=== PATIENT | female | born 1950 | race Caucasian/White ===

== ENCOUNTER → 2018-04-22 12:41 | Outpatient (CLI) | payer MEDICARE, SELFPAY ==
[2018-04-15 13:00] VITALS: BMI 30.4
--- NOTE | 2018-04-22 12:46 | BI_ITS ---
MAMMOGRAPHY - BILATERAL SCREENING REASON FOR EXAM: Female, 68 years old. Routine annual screening examination. PERTINENT HISTORY: Non-contributory. TECHNIQUE: Digital bilateral breast oswaldo (3D mammographic acquisition) in the CC and MLO projections. 2-D mediolateral oblique (MLO) and craniocaudad (CC) views of both breasts were obtained. CAD: Full Field Digital Mammography with Computer Added Detection was performed. COMPARISON: Comparison is made with prior study dated March 10, 2017 and March 01, 2016. FINDINGS: Breast Composition: The breasts are almost entirely fatty. There are no dominant masses or suspicious calcifications. No other significant abnormalities are identified. There has been no significant change since the prior study. BI/SCREENING MAMM (CAD), BILAT IMPRESSION: Stable bilateral screening mammogram. Yearly follow-up mammogram recommended. (A) ASSESSMENT CATEGORY: BIRADS Category 1: Negative. A letter regarding these results will be sent to the patient by the facility within 30 days. Approximately 10% of breast cancers are not detected by mammography. A normal mammogram should not delay biopsy of a clinically suspicious abnormality. [id number] Electronically Signed: Jesus Vyas MD at 14:11 EST Tel [phone], Service support ,
== END ==
PROVIDERS: Family Provider Family Medicine; PCP Family Medicine; Visit Provider Obstetrics & Gynecology
DX: Z12.31 Encounter for screening mammogram for malignant neoplasm of breast (principal)
CPT/HCPCS: 77063; 77067

== ENCOUNTER → 2018-04-30 11:02 | Outpatient (CLI) | payer MEDICARE, SELFPAY ==
[2018-04-15 13:00] VITALS: BMI 30.4
== END ==
PROVIDERS: Family Provider Family Medicine; PCP Family Medicine; Referring Provider Internal Medicine Cardiovascular Disease; Visit Provider Internal Medicine Cardiovascular Disease
DX: I10 Essential (primary) hypertension (principal)
CPT/HCPCS: 93788

== ENCOUNTER → 2018-05-01 14:45 | Outpatient (CLI) | payer MEDICARE, SELFPAY ==
[2018-04-15 13:00] VITALS: BMI 30.4
--- NOTE | 2018-05-01 14:48 | ECHOD_ITS ---
Reason For Study: HTN Procedure This was a 2D Doppler, Color Flow transthoracic echocardiogram. Exam performed in department. Left Ventricle Normal LV size. Left ventricular systolic function is normal. The estimated ejection fraction is 60 %. Transmitral and pulmonary venous doppler flow suggestive of impaired relaxation of left ventricle. Normal diastology for age. No regional wall motion abnormalities noted. Right Ventricle Normal RV size. Normal systolic function. Atria Normal left atrium. Normal right atrium. Mitral Valve Normal mitral valve. Tricuspid Valve Normal tricuspid valve. Mild (1+) tricuspid valve insufficiency. Pulmonary artery systolic pressure is 23 mmHg. Aortic Valve Normal aortic valve. Trisinus/trileaflet aortic valve. Pulmonic Valve Normal pulmonic valve. Great Vessels Normal aortic root. The pulmonary artery is normal size. Normal inferior vena cava. Pericardium/Pleural No pericardial effusion. MMode/2D Measurements & Calculations LVIDd: 3.6 cm IVSd: 1.0 cm Ao root diam: 2.9 cm LVIDs: 2.5 cm LVPWd: 0.86 cm RVDd: 3.3 cm FS: 31.3 % LAV(MOD-bp): 46.6 ml EDV(MOD-sp4): 81.4 ml EDV(MOD-sp2): 60.5 ml LAV(MOD-bp) Indexed: 24.5 ml/m2 ESV(MOD-sp4): 31.2 ml EF(MOD-sp2): 64.2 % LAV(MOD-sp2): 43.4 ml EF(MOD-sp4): 61.7 % LAV(MOD-sp4): 44.5 ml SV(MOD-sp4): 50.2 ml SV(MOD-sp2): 38.8 ml LA A4 area: 16.9 cm2 LA dimension(2D): 3.5 cm RA A4 area: 13.4 cm2 Time Measurements MV dec time: 0.17 sec Doppler Measurements & Calculations MV E max abhishek: 78.7 cm/sec Lat Peak E' Abhishek: 10.3 cm/sec Med Peak E' Abhishek: 6.7 cm/sec MV A max abhishek: 67.0 cm/sec E/E' lat: 7.6 E/E' med: 11.7 MV E/A: 1.2 Ao V2 max: 161.4 cm/sec LV V1 max: 145.9 cm/sec PA V2 max: 98.0 cm/sec Ao max P.4 mmHg LV V1 max P.5 mmHg TR max abhishek: 213.4 cm/sec TR max P.2 mmHg Interpretation Summary Normal LV size. Left ventricular systolic function is normal. The estimated ejection fraction is 60 %. Normal diastology for age. Mild (1+) tricuspid valve insufficiency. Ordering Physician: Clari^Alex^^^ Referring Physician: SCOTT PETTY Performed By: Preeti Drummond, NEMESIO, RVT
--- OUTSIDE RECORDS SUMMARY | 2018-08-05 06:06 | XMS RPT_ITS ---
:1950 Author Organization OHIP Care Team Providers Name Role Phone Alex Montague Attending Unavailable Clari, [place] Referring Unavailable Scott Wong Primary Care Unavailable ClariVenkata joaquinril Consulting Unavailable Clari, [place] Attending Unavailable Scott Wong Referring Unavailable Olena Dutta Attending Unavailable Clari, Alex Attending Unavailable Scott Wong Referring Unavailable Peg Darling Attending Unavailable Scott Wong Primary Care Unavailable ClariVenkataClearfield Attending Unavailable Clari, Alex Referring Unavailable Clari, [place] Attending Unavailable Clari, Alex Referring Unavailable Scott Wong Primary Care Unavailable Clari, Alex Attending Unavailable Alex Montague Referring Unavailable Scott Wong Primary Care Unavailable PROBLEMS PROBLEMS DATE TYPE CONDITION / CODE ATTENDING STATUS SOURCE 05/07/2018 Unknown I10 - Essential ClariAlex joaquin Active [facility] (primary) Community hypertension / Hospital I10(ICD-10) Repository 05/26/2018 Unknown R03.0 - Elevated Clari, Alex Active [facility] blood-pressure Community reading, without Hospital diagnosis of Repository hypertension / R03.0(ICD-10) PROCEDURES PROCEDURES No Procedure Records FoundRESULTS RESULTS CARDIOLOGY VISIT Observed: 05/07/2018 Status: F Source: [facility] [address] [place] [address] OFFICE VISIT Date of Service: 05/07/18 MR#: [id number] Acct: [id number] Name: DEMETRIUS BETANCUR Rep #: [id number] : 1950 Provider: Alex Montague MD Age/Sex: 68/F Location: [facility] Status: Signed HPI HPI Chief Complaint: Follow up Details: DEMETRIUS BETANCUR, is a 68 F who presents to the office today for a follow-up visit. She is a lady who I had seen in March of this year with uncontrolled hypertension. We adjusted her medications and had a 24-hour ambulatory blood pressure monitor performed. She did very well her overall blood pressure was noted to be 112/67 mmHg and she says that her headache has disappeared. An echocardiogram was performed with demonstrated preserved ejection fraction. She has had no neck arm or jaw discomfort suggest angina. Her physical exam demonstrates clear lung berry regular rate and rhythm and no pedal edema. 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 Required: No Accompanied by: none Is patient in pain?: No Allergies acetaminophen [From Percocet] Allergy (Verified 05/07/18 15:37) Rash oxycodone HCl [From Percocet] Allergy (Verified 05/07/18 15:37) Rash Sulfa (Sulfonamide Antibiotics) Allergy (Verified 05/07/18 15:37) Rash sulfamethoxazole [From Septra] Allergy (Verified 05/07/18 15:37) Rash trimethoprim [From Septra] Allergy (Verified 05/07/18 15:37) Rash DENTAL GLUES Allergy (Uncoded 04/15/18 13:00) Rash MICRODANTIN Allergy (Uncoded 04/15/18 13:00) Rash Medications cholecalciferol (vitamin D3) 2,000 unit capsule 2,000 unit PO DAILY 04/14/18 [History Confirmed 05/07/18] levothyroxine 88 mcg tablet 88 mcg PO DAILY 90 Days #90 tab 04/14/18 [History Confirmed 05/07/18] lisinopril 40 mg tablet 40 mg PO DAILY 04/14/18 [History Confirmed 05/07/18] valacyclovir 1 gram tablet 1,000 mg PO BID 04/14/18 [History Confirmed 05/07/18] amlodipine 10 mg tablet 10 mg PO DAILY #90 tab 05/05/18 [Rx Confirmed 05/07/18] hydrochlorothiazide 25 mg tablet 25 mg PO DAILY #90 tab 05/05/18 [Rx Confirmed 05/07/18] [facility] Medical History Essential (primary) hypertension (Chronic) Chronic fatigue and malaise (Chronic) Hypothyroidism (Chronic) Obesity (Chronic) Osteopenia (Chronic) Psoriasis (Chronic) Surgical History H/O foot surgery (Resolved) History of tonsillectomy and adenoidectomy (Resolved) History of total abdominal hysterectomy (Resolved) Family History Father Myocardial infarction age 62 Mother Diabetes Cancer lung cancer Social History Smoking Status: Never smoker alcohol intake: current alcohol intake frequency: holidays/special occasions only ROS Const Const: Negative for fatigue, weakness, night sweats, excessive sweating, frequent falls, headache(s) or daytime sleepiness Eyes Eyes: Negative for loss of peripheral vision, transient loss of vision, blind spots, double vision or blurry vision ENT ENT: Negative for headache(s), dizziness, balance problems, Nosebleed/epistaxis, tongue swelling or lip swelling Cardio Chest Pain: No Palpitations: No Edema: Bilateral Muscle aches with walking: None Resp Respiratory: Negative for SOB at rest, SOB orthopnea\SOB lying down, Cough, paroxysmal nocturnal dyspnea or SOB with activity GI GI: Negative nausea, vomiting, heartburn, black,tarry stools or bright, red blood in stools : Negative for hematuria Musc Musc: Negative for balance problems, muscle aches/ myalgia, muscle weakness or joint pain Skin Skin: Negative non-healing lesions, unusual bruising or rash Neuro Neuro: Negative for weakness, frequent falls, headache(s), double vision, dizziness, lightheadedness, orthostatic symptoms, blurry vision or lack of coordination Bang Hematologic/Lymphatic: Negative for easy bruising or easy bleeding Endo Endo: Negative for fatigue, excessive sweating, cold intolerance, heat intolerance, increased thirst/drinking or hair loss Psych Psych: Negative for anxiety or depression Allergy Allergy/Immunology: Negative for throat swelling, Negative for tongue swelling, Negative for hives, Negative for rash, Negative for lip swelling Cardiology Exam Const Appearance: cooperative, healthy appearing, well developed, well groomed and no acute distress Nutritional Appearance: well nourished and average body habitus Orientation: alert, awake and oriented x3 Head Head: normal to inspection, normocephalic and atraumatic Ears: hearing grossly normal bilaterally and external ears normal Nose: external nose normal, nasal mucous membranes and turbinates normal, nares normal, septum normal, no nasal discharge Face and Sinus: face symmetric Mouth: oral mucosae normal, tongue normal, oropharynx normal and moist mucous membranes Teeth and gingiva: dentition normal Throat: posterior oropharynx normal, tonsils normal and uvula midline Eyes General: appearance normal, both eyes and all related structures Eyelids: eyelids normal Conjunctivae: conjunctivae normal Pupils: PERRL, normal by confrontation and accommodation normal EOM: EOM intact bilaterally Neck Neck: normal visual inspection, trachea midline and no JVD JVD: +5 Carotids: normal carotid upstroke and bounding pulses Chest Chest inspection: normal inspection of the chest, symmetric chest movement and normal respiratory effort Auscultation: Bilateral: Clear to Auscultation Cardio Palpation: normal PMI Rate: regular rate Rhythm: regular rhythm Heart sounds: S1 normal, S2 normal and normal, physiologic split S2; negative rub, gallop or murmur GI GI: normal to inspection, soft, no hepatosplenomegaly and bowel sounds present Neuro General: alert, awake, oriented x3, no focal sensory deficit, gait normal and moves all extremities Skin Skin: no rashes or lesions noted Extremities Pulses: Normal: Right Femoral Pulse, Left Femoral Pulse, Right Dorsalis Pedis Pulse, Left Dorsalis Pedis Pulse, Right Posterior Tibial Pulse, Left Posterior Tibial Pulse, Right Radial Pulse, Left Radial Pulse Lower Extremity Edema: None: Bilateral Musculoskel Musculoskeletal: No joint tenderness Psych Psychological: normal affect Assessment AND Plan 1. Essential (primary) hypertension I10 Plan Her blood pressure appears to be under good control on the current medical repair no suggest that we make any changes and I will like to see her again in approximately 6 months. Thank you for allowing me to participate in the care of your patient. Please don't hesitate to call if any issues arise Plan Detail Follow Up 6 Months (mmm) Coding Level of Care Code Off vis,est,level 3 Diagnoses Essential (primary) hypertension I10 Coding Level of Care Code Off vis,est,level 3 Diagnoses Essential (primary) hypertension I10 05/07/18 1552 <Electronically signed by Alex Montague MD> Date Alex Montague MD Cosigner Signature: Date (if applicable) CC: Scott Wong DO ECHOCARDIOGRAM COMPLETE Observed: 05/01/2018 Status: F Source: [facility] 3:52 PM [facility] REPOSITORY [facility] Cardiovascular Services [address] [place] [address] Echo Complete 05/01/18 1456 MR#: [id number] Acct: [id number] Name: DEMETRIUS BETANCUR Rep #: [id number] : 1950 68 From: Alex Montague MD Attending Dr: Alex Montague MD Status: REG CLI Ordering Dr: Alex Montague MD Date: 05/01/18 Location: [facility] Sex: F C Admitted: Reason For Study: HTN Procedure This was a 2D Doppler, Color Flow transthoracic echocardiogram. Exam performed in department. Left Ventricle Normal LV size. Left ventricular systolic function is normal. The estimated ejection fraction is 60 %. Transmitral and pulmonary venous doppler flow suggestive of impaired relaxation of left ventricle. Normal diastology for age. No regional wall motion abnormalities noted. Right Ventricle Normal RV size. Normal systolic function. Atria Normal left atrium. Normal right atrium. Mitral Valve Normal mitral valve. Tricuspid Valve Normal tricuspid valve. Mild (1+) tricuspid valve insufficiency. Pulmonary artery systolic pressure is 23 mmHg. Aortic Valve Normal aortic valve. Trisinus/trileaflet aortic valve. Pulmonic Valve Normal pulmonic valve. Great Vessels Normal aortic root. The pulmonary artery is normal size. Normal inferior vena cava. Pericardium/Pleural No pericardial effusion. MMode/2D Measurements AND Calculations LVIDd: 3.6 cm IVSd: 1.0 cm Ao root diam: 2.9 cm LVIDs: 2.5 cm LVPWd: 0.86 cm RVDd: 3.3 cm FS: 31.3 % LAV(MOD-bp): 46.6 ml EDV(MOD-sp4): 81.4 ml EDV(MOD-sp2): 60.5 ml LAV(MOD-bp) Indexed: 24.5 ml/m2 ESV(MOD-sp4): 31.2 ml EF(MOD-sp2): 64.2 % LAV(MOD-sp2): 43.4 ml EF(MOD-sp4): 61.7 % LAV(MOD-sp4): 44.5 ml SV(MOD-sp4): 50.2 ml SV(MOD-sp2): 38.8 ml LA A4 area: 16.9 cm2 LA dimension(2D): 3.5 cm RA A4 area: 13.4 cm2 Time Measurements MV dec time: 0.17 sec Doppler Measurements AND Calculations MV E max abhishek: 78.7 cm/sec Lat Peak E' Abhishek: 10.3 cm/sec Med Peak E' Abhishek: 6.7 cm/sec MV A max abhishek: 67.0 cm/sec E/E' lat: 7.6 E/E' med: 11.7 MV E/A: 1.2 Ao V2 max: 161.4 cm/sec LV V1 max: 145.9 cm/sec PA V2 max: 98.0 cm/sec Ao max P.4 mmHg LV V1 max P.5 mmHg TR max abhishek: 213.4 cm/sec TR max P.2 mmHg Interpretation Summary Normal LV size. Left ventricular systolic function is normal. The estimated ejection fraction is 60 %. Normal diastology for age. Mild (1+) tricuspid valve insufficiency. Ordering Physician: Clari Referring Physician: SCOTT WONG Performed By: Preeti Drummond, RDCS, RVT 05/01/18 1551 Date Alex Montague MD CC: Alex Montague MD; Scott Wong DO Date Dictated: 05/01/18 1456 Date Transcribed: 05/01/18 1551 Web Weaver: Signed SCREENING MAMM (CAD), Observed: 04/22/2018 Status: F Source: [facility] 12:46 PM [facility] REPOSITORY [facility] Imaging Services [address] [place] [id number] SCREENING MAMM (CAD), BILAT MR#: [id number] Acct: [id number] Name: DEMETRIUS BETANCUR Rep #: [id number] : 1950 F 68 From: Jesus Vyas MD PCP: Scott Wong DO Status: REG CLI Study: SCREENING MAMM (CAD), BILAT Date of Exam: 04/22/18 Exam# [id number] Ordering Dr: Peg Darling MD MAMMOGRAPHY - BILATERAL SCREENING REASON FOR EXAM: Female, 68 years old. Routine annual screening examination. PERTINENT HISTORY: Non-contributory. TECHNIQUE: Digital bilateral breast oswaldo (3D mammographic acquisition) in the CC and MLO projections. 2-D mediolateral oblique (MLO) and craniocaudad (CC) views of both breasts were obtained. CAD: Full Field Digital Mammography with Computer Added Detection was performed. COMPARISON: Comparison is made with prior study dated March 10, 2017 and March 01, 2016. FINDINGS: Breast Composition: The breasts are almost entirely fatty. There are no dominant masses or suspicious calcifications. No other significant abnormalities are identified. There has been no significant change since the prior study. BI/SCREENING MAMM (CAD), BILAT IMPRESSION: Stable bilateral screening mammogram. Yearly follow-up mammogram recommended. (A) ASSESSMENT CATEGORY: BIRADS Category 1: Negative. A letter regarding these results will be sent to the patient by the facility within 30 days. Approximately 10% of breast cancers are not detected by mammography. A normal mammogram should not delay biopsy of a clinically suspicious abnormality. [id number] Electronically Signed: Jesus Vyas MD at 14:11 EST Tel [phone], Service support , CC: Peg Darling MD; Scott Wong DO Web Weaver: Signed CARDIOLOGY VISIT Observed: 04/15/2018 Status: F Source: [facility] RE[facility] 1:43 PM [facility] REPOSITORY [facility] [address] [place] [address]. [address] [place] [address] OFFICE VISIT Date of Service: 04/15/18 MR#: [id number] Acct: [id number] Name: DEMETRIUS BETANCUR Rep #: [id number] : 1950 Provider: Alex Montague MD Age/Sex: 68/F Location: [facility] Status: Signed HPI HPI Chief Complaint: Initial visit Details: DEMETRIUS BETANCUR, is a 68 F who presents to the office today for an initial visit. She is a lady with a history of hypertension which she says has been going on for approximately 2 years. She was initially put on medication was taking her blood pressure readings which it improved and then subsequently started getting worse. This has been accompanied by a headache which is quite constant. Occasionally she has had some blurring of vision dizziness as well as facial flushing. She has had no shortness of breath no chest pain no paroxysmal nocturnal dyspnea pedal edema she has not been on any significant amount of nonsteroidal anti-inflammatory agents despite the fact that she has been in a knee immobilizer due to right patella fracture. Her physical exam today demonstrates clear lung berry regular rate and rhythm and no pedal edema her blood pressure appears to be under much better control this morning. Her electrocardiogram demonstrates normal sinus rhythm with a rate of 68 bpm and no acute changes are noted. Intake Vital Signs04/15/18 Height 5 ft 6 in 04/15/18 Weight: 189 lb 04/15/18 Body Mass Index (BMI) 30.4 04/15/18 Blood Pressure 122/72 H 04/15/18 Pulse Rate 68 04/15/18 Temperature 98 F Intake Visit Reasons: Hypertension (self ref'd) Allergies acetaminophen [From Percocet] Allergy (Verified 04/15/18 13:00) Rash oxycodone HCl [From Percocet] Allergy (Verified 04/15/18 13:00) Rash Sulfa (Sulfonamide Antibiotics) Allergy (Verified 04/15/18 13:00) Rash sulfamethoxazole [From Septra] Allergy (Verified 04/15/18 13:00) Rash trimethoprim [From Septra] Allergy (Verified 04/15/18 13:00) Rash DENTAL GLUES Allergy (Uncoded 04/15/18 13:00) Rash MICRODANTIN Allergy (Uncoded 04/15/18 13:00) Rash Medications cholecalciferol (vitamin D3) 2,000 unit capsule 2,000 unit PO DAILY 04/14/18 [History Confirmed 04/15/18] levothyroxine 88 mcg tablet 88 mcg PO DAILY 90 Days #90 tab 04/14/18 [History Confirmed 04/15/18] lisinopril 40 mg tablet 40 mg PO DAILY 04/14/18 [History Confirmed 04/15/18] valacyclovir 1 gram tablet 1,000 mg PO BID 04/14/18 [History Confirmed 04/15/18] amlodipine 10 mg tablet 10 mg PO DAILY #30 tab 04/15/18 [Rx Confirmed 04/15/18] hydrochlorothiazide 25 mg tablet 25 mg PO DAILY #90 tab 04/15/18 [Rx Confirmed 04/15/18] PFSH Medical History Essential (primary) hypertension (Chronic) Chronic fatigue and malaise (Chronic) Hypothyroidism (Chronic) Obesity (Chronic) Osteopenia (Chronic) Psoriasis (Chronic) Surgical History H/O foot surgery (Resolved) History of tonsillectomy and adenoidectomy (Resolved) History of total abdominal hysterectomy (Resolved) Family History Father Myocardial infarction age 62 Mother Diabetes Cancer lung cancer Social History Smoking Status: Never smoker alcohol intake: current alcohol intake frequency: holidays/special occasions only ROS Const Const: Positive for headache(s) (Notes headaches when her BP is elevated); negative for fatigue, weakness, difficulty sleeping, frequent falls or excessive sweating Eyes Eyes: Negative for loss of peripheral vision, transient loss of vision, blurry vision, tunnel vision or double vision ENT ENT: Positive for headache(s) (Notes headaches when her BP is elevated); negative for dizziness, Nosebleed/epistaxis or balance problems Cardio Chest Pain: No Palpitations: No Edema: None Muscle aches with walking: None Resp Respiratory: Negative for SOB with activity, SOB at rest, SOB orthopnea\SOB lying down, paroxysmal nocturnal dyspnea or Cough GI GI: Negative nausea, heartburn, black,tarry stools or vomiting : Negative for hematuria Musc Musc: Negative for balance problems, muscle aches/ myalgia, muscle weakness or joint pain Skin Skin: Negative non-healing lesions, unusual bruising or rash Neuro Neuro: Positive for headache(s) (Notes headaches when her BP is elevated); negative for weakness, frequent falls, blurry vision, double vision, dizziness, lightheadedness, orthostatic symptoms, near syncope, syncope or lack of coordination Bang Hematologic/Lymphatic: Negative for easy bruising or easy bleeding Endo Endo: Negative for fatigue, excessive sweating or increased thirst/drinking Psych Psych: Negative for anxiety or depression Allergy Allergy/Immunology: Negative for hives, Negative for rash Cardiology Exam Const Appearance: cooperative, healthy appearing, well developed, well groomed and no acute distress Nutritional Appearance: well nourished and average body habitus Orientation: alert, awake and oriented x3 Head Head: normal to inspection, normocephalic and atraumatic Ears: hearing grossly normal bilaterally and external ears normal Nose: external nose normal, nasal mucous membranes and turbinates normal, nares normal, septum normal, no nasal discharge Face and Sinus: face symmetric Mouth: oral mucosae normal, tongue normal, oropharynx normal and moist mucous membranes Teeth and gingiva: dentition normal Throat: posterior oropharynx normal, tonsils normal and uvula midline Eyes General: appearance normal, both eyes and all related structures Eyelids: eyelids normal Conjunctivae: conjunctivae normal Pupils: PERRL, normal by confrontation and accommodation normal EOM: EOM intact bilaterally Neck Neck: normal visual inspection, trachea midline and no JVD JVD: +5 Carotids: normal carotid upstroke and bounding pulses Chest Chest inspection: normal inspection of the chest, symmetric chest movement and normal respiratory effort Auscultation: Bilateral: Clear to Auscultation Cardio Palpation: normal PMI Rate: regular rate Rhythm: regular rhythm Heart sounds: S1 normal, S2 normal and normal, physiologic split S2; negative rub, gallop or murmur GI GI: normal to inspection, soft, no hepatosplenomegaly and bowel sounds present Neuro General: alert, awake, oriented x3, no focal sensory deficit, gait normal and moves all extremities Skin Skin: no rashes or lesions noted Extremities Pulses: Normal: Right Femoral Pulse, Left Femoral Pulse, Right Dorsalis Pedis Pulse, Left Dorsalis Pedis Pulse, Right Posterior Tibial Pulse, Left Posterior Tibial Pulse, Right Radial Pulse, Left Radial Pulse Lower Extremity Edema: None: Bilateral Musculoskel Musculoskeletal: No joint tenderness Psych Psychological: normal affect Assessment AND Plan 1. Essential (primary) hypertension I10 Plan She does have a history of hypertension which I suspect is essential in nature her most recent renal function was noted to be normal. She apparently has been using an appropriate size cuff to measure her blood pressures. Recommendation for now will be for her to discontinue the beta-kia and add hydrochlorothiazide 25 mg a day to her current regimen of the amlodipine, and the lisinopril. Would also recommend that we perform an echocardiogram to assess her left ventricular function. She should continue checking her blood pressures 2 or 3 times a week. I will however recommend that we obtain a 24-hour ambulatory blood pressure monitor. Depending on these findings further recommendations will be made. Orders Orders: Plan Detail Other Medications New: Discontinued: Follow Up 2 Months (mmm) Coding Level of Care Code Off vis,new,level 4 Diagnoses Essential (primary) hypertension I10 Coding Level of Care Code Off vis,new,level 4 Diagnoses Essential (primary) hypertension I10 04/15/18 1343 <Electronically signed by Alex Montague MD> Date Alex Montague MD Cosigner Signature: Date (if applicable) CC: Scott Wong DO 12 LEAD EKG PERFORMED Observed: 04/15/2018 Status: F Source: [facility] 1:01 PM [facility] REPOSITORY [facility] [address] [place] [address] 12 Lead EKG performed by [facility] 04/15/18 1301 MR#: [id number] Acct: [id number] Name: DEMETRIUS BETANCUR Rep #: [id number] : 1950 68 From: Alex Montague MD Attending Dr: Alex Montague MD Status: DEP AMB Ordering Dr: Alex Montague MD Date: 04/15/18 Location: [facility] Sex: F C Admitted: [facility]/12 Lead EKG performed by [facility] ECG Report Interpretation Sinus Rhythm WITHIN NORMAL LIMITSElectronically signed on 04/22/2018 at 11:35 by Alex Montague [employer] Version [id number] 04/22/18 1146 Date Alex Montague MD CC: Scott Wong DO Date Dictated: 04/15/181300 Date Transcribed: 04/15/181300 Web Weaver: CO Signed ALLERGIES ALLERGIES DATE TYPE / CODE NAME / CODE REACTION SEVERITY SOURCE 05/07/2018 Drug oxycodone Rash Unknown [facility] Allergy/941249363( HCl/[id number](R [facility] SNOMED [facility]) XNORM) Hospital Repository 05/07/2018 Drug Sulfa Rash Unknown [facility] Allergy/631083816( (Sulfonamide Community SNOMED CT) Antibiotics)/F00 Hospital 5616656(RXNORM) Repository 05/07/2018 Drug acetaminophen/F0 Rash Unknown [facility] Allergy/197837863( 55564124(RXNORM) Community SNOM[facility]) Hospital Repository 05/07/2018 Drug sulfamethoxazole Rash Unknown [facility] Allergy/043564392( /[id number](RXNO [facility] SNOMED CT) RM) Hospital Repository 05/07/2018 Drug trimethoprim/F00 Rash Unknown [facility] Allergy/047433818( 5779288(RXNORM) [facility] SNOM[facility]) Hospital Repository 04/15/2018 Miscellaneous DENTAL GLUES Rash Unknown [facility] Allergy/298496885( Community SNOM[facility]) Hospital Repository 04/15/2018 Miscellaneous MICRODANTIN Rash Unknown [facility] Allergy/943800655( Community SNOMED CT) Hospital Repository ENCOUNTERS ENCOUNTERS ADMIT/DISCHARGE ACCOUNT ADMITTING ENCOUNTER LOCATION SOURCE NUMBER CLASS 05/07/2018/ [id number] Ambulatory BMSBuilding:B [facility] 8 0 [facility] Repository 05/04/2018 [id number] Ambulatory BMSBuilding:W [facility] 9 [facility] Repository 05/01/2018 [id number] Ambulatory BMSBuilding:B [facility] 6 MS.[facility] Repository 05/01/2018 [id number] Ambulatory [facility] 8 [facility] ing:[facility] Repository 04/30/2018 [id number] Ambulatory [facility] 0 [facility] ing:[facility] Repository 04/22/2018 [id number] Ambulatory [facility] 1 [facility] ing:[facility] Repository 04/15/2018/ [id number] Ambulatory BMSBuilding:B [facility] 8 4 [facility] Repository 04/14/2018 [id number] Ambulatory BMSBuilding:B [facility] 7 [facility] Repository PAYERS PAYERS ENCOUNTER GUARANTOR PAYER SUBSCRIBER SOURCE 05/07/2018 CHAS Stephenson Primary DEMETRIUS BETANCUR[address] S Insurance:AETNA PIPEDOB: Community SWINE[employer]ART MCRPolicy Number: [id number] CenterJ4NDEffective Repository [place] [address]Tiw: Date:[id number] [id number] JIMY WHITLOCK () [id number]: 05/07/2018 Secondary NOT GIVENUNK [place] Insurance:SELF PAY [facility] Number: Effective Repository Date:2018-04-22 05/04/2018 CHAS Stephenson Primary [id number] Insurance:AETNA PIPEDOB: [facility] [place] [facility]Policy Number: [id number] Medical CenterJ4NDEffective Repository [place] [id number]: Date:6700-20-97[address] JIMY WHITLOCK () [id number]: 05/04/2018 Secondary NOT GIVENUNK Huntley Insurance:SELF PAY [facility] Number: Effective Repository Date:2018-05-04 05/01/2018 CHAS Stephenson Primary DEMETRI[id number] Insurance:AETNA PIPEDOB: [facility] [place] MCRPolicy Number: [id number] Medical CenterJ4NDEffective [place]ository [place] [address]Xcq: Date:0561-73-20[address] JIMY WHITLOCK () [id number]: 05/01/2018 Secondary NOT GIVENUNK Huntley Insurance:SELF PAY [facility] Number: Effective Repository Date:2018-05-01 05/01/2018 CHAS Stephenson Primary DEMETRI[id number] Insurance:AETNA CRAMERDOB: [facility] [place] [facility]Policy Number: [id number], MEBNJ4NDEffective Repository [place] [id number]: Date:1485-82-33[address] [place] () [phone]: 05/01/2018 Secondary NOT GIVENUNK Ramila Insurance:SELF PAY [facility] Number: Effective Repository Date:2018-04-22 04/30/2018 CHAS Stephenson Primary DEMETRI[id number] Insurance:AETNA VENKATMERDOB: [facility] [place] [facility] Number: [id number], MEBNJ4NDEffective [place]ository [place] [address]Mvn: Date:2654-63-50IM [id number] [place] [address] () [id number]: 04/30/2018 Secondary NOT GIVENUNK Ramila Insurance:SELF PAY [facility] Number: Effective Repository Date:2018-04-22 04/22/2018 CHAS Stephenson Primary DEMETRI[id number] Insurance:AETNA VENKATMERDOB: [facility] [place] [facility] Number: [id number] Medical CenterJ4NDEffective Repository [place] [address]Bsq: Date:5300-82-88VS [id number] [place] [address] () [phone]: 04/22/2018 Secondary NOT GIVENUNK Huntley Insurance:SELF PAY [facility] Number: Effective Repository Date:2018-03-10 04/15/2018 CHAS Stephenson Primary [address]RI[id number] Insurance:AETNA VENKATMERDOB: [facility] [place] [facility] Number: [id number], MEBNJ4NDEffective Repository [place] [address]Byp: Date:9467-28-00[address] JIMY WHITLOCK () [phone]: 04/15/2018 Secondary NOT GIVENUNK Huntley Insurance:SELF PAY [facility] Number: Effective Repository Date:2018-04-06 04/14/2018 CHAS Stephenson Primary DEMETRIUS A Ramilateddy [id number] Insurance:AETNA STEFANIB: [facility] [place] [facility] Number: [id number] Health CenterRUBEN LLOYD, [id number] Repository [place] [phone]: Date:1305-90-58QH [address] JIMY WHITLOCK () [phone]: 04/14/2018 Secondary NOT GIVENUNK Huntley Insurance:SELF PAY [facility] Number: Effective Repository Date:2018-04-14
== END ==
PROVIDERS: Family Provider Family Medicine; PCP Family Medicine; Referring Provider Internal Medicine Cardiovascular Disease; Visit Provider Internal Medicine Cardiovascular Disease
DX: I10 Essential (primary) hypertension (principal); I07.1 Rheumatic tricuspid insufficiency
CPT/HCPCS: 93306

== ENCOUNTER → 2019-01-26 10:49 | Outpatient (CLI) | payer MEDICARE, SELFPAY ==
[2018-11-10 08:02] VITALS: BMI 31.3
[2019-01-27 12:09] LABS: HEPATITIS B SURFACE AG Negative (Negative); Hepatitis A AB, Total Negative (Negative); Hepatitis A IgM Antibody Negative (Negative); Hepatitis B Core AB IgM Negative (Negative); Hepatitis B Core Ab Total Negative (Negative); Hepatitis C Ab <0.1 s/co ratio (0.0-0.9)
[2019-01-27 12:17] LABS: Hep B Surface Antibodies Reactive (.)
== END ==
DX: L43.8 Other lichen planus (principal)
CPT/HCPCS: 36415; 86704; 86705; 86706; 86708; 86709; 86803; 87340

== ENCOUNTER → 2020-04-26 07:59 | Outpatient (CLI) | payer MEDICARE, SELFPAY ==
[2020-04-25 07:48] VITALS: BMI 31.9
[2020-04-26 10:19] LABS: AST(SGOT) 21 U/L (15-37); Alanine Aminotransfer ALT/SGPT 39 U/L (13-56); Albumin, Serum 3.5 g/dL (3.2-5.0); Alkaline Phosphatase 88 U/L (45-117); Bilirubin, Direct 0.12 mg/dL (0.00-0.30); Cholesterol 187 mg/dL (200); Globulin 3.4 g/dL (2.2-4.2); High Density Lipoprotein 52 mg/dL; Protein, Total 6.9 g/dL (6.4-8.2); Triglycerides 90 mg/dL; Very Low Density Lipoprotein 18 mg/dL (5-40)
== END ==
PROVIDERS: PCP Family Medicine; Referring Provider Internal Medicine Cardiovascular Disease; Visit Provider Internal Medicine Cardiovascular Disease
DX: I10 Essential (primary) hypertension (principal)
CPT/HCPCS: 36415; 80061; 80076

== ENCOUNTER → 2020-05-09 16:00 | Outpatient (CLI) | payer MEDICARE, SELFPAY ==
[2020-04-25 07:48] VITALS: BMI 31.9
--- NOTE | 2020-05-09 16:02 | BD_ITS ---
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 COMPARISON: None. FINDINGS: Lumbar Spine (L1-L4): g/cm2 (1.147) / T-score (-0.2) / Z-score (1.4) Findings are suggestive of normal bone density with a low fracture risk. Left Femur Total: g/cm2 (0.912) / T-score (-0.8) / Z-score (0.6) Left Femoral Neck: g/cm2 (0.811) / T-score (-1.6) / Z-score (0.0) Right Femur Total: g/cm2 (0.843) / T-score (-1.3) / Z-score (0.0) Right Femoral Neck: g/cm2 (0.818) / T-score (-1.6) / Z-score (0.0) BD/Dexa Bone Density Study IMPRESSION: The patient is considered osteopenic as outlined below according to World Edison Organization (WHO) criteria with a moderate fracture risk. Reference Information: The T-score is the number of standard deviations above or below the standard which is normal for young adults at their peak bone mineral density. The World Health Organization (WHO) interprets the T-scores as follows: Above -1 Normal bone density Between -1 and -2.5 Osteopenia Equal to / or below -2.5 Osteoporosis As a practical clinical guideline, osteopenia may be graded as follows: Mild -1 through -1.5 Moderate -1.6 through -2.0 Severe -2.1 through -2.4 The Z-score is the number of standard deviations above or below age-matched controls. A Z-score of less than -1.5 would be considered abnormal. References: 1. NIH Osteoporosis and Related Bone Diseases www osteo.org 2. International Society for Clinical Densitometry www iscd.org 3. National Osteoporosis Foundation www nof.org Electronically Signed: Jesus Vyas, at 8:38 EST , Service support ,
== END ==
PROVIDERS: PCP Family Medicine; Referring Provider Family Medicine; Visit Provider Family Medicine
DX: Z78.0 Asymptomatic menopausal state (principal); Z13.820 Encounter for screening for osteoporosis; E55.9 Vitamin D deficiency, unspecified; E03.9 Hypothyroidism, unspecified
CPT/HCPCS: 77080

== ENCOUNTER → 2021-09-21 | Outpatient (CLI) | payer MEDICARE, SELFPAY ==
[2021-09-21 10:35] LABS: Hematocrit 42.1 % (37-47); Hemoglobin 13.7 g/dL (12.0-15.0); Mean Corp Hgb Conc 32.5 g/dL (32-36); Mean Corpuscular Hgb 32.2 pg (27.0-32.0); Mean Corpuscular Volume 98.8 fL (81-99); Mean Platelet Vol. 10.6 fl (6.2-12.0); Platelet Count 367 K/mm3 (150-450); RBC Distribution Width CV 13.2 % (11.6-14.6); Red Blood Count 4.26 M/mm3 (4.2-5.4); White Blood Count 6.1 K/mm3 (4.4-11.0)
[2021-09-21 10:58] LABS: AST(SGOT) 26 U/L (15-37); Alanine Aminotransfer ALT/SGPT 44 U/L (13-56); Albumin, Serum 3.6 g/dL (3.2-5.0); Alkaline Phosphatase 83 U/L (45-117); Anion Gap 7 (5-15); BUN 18 mg/dL (7-18); BUN/Creat Ratio 18.9 RATIO (10-20); Chloride 104 mmol/L (98-107); Cholesterol 180 mg/dL (200); Creatinine, Serum 0.95 mg/dL (0.55-1.02); EST Glomerular Filtration Rate 62 mL/min (>60); Est Glom Filt Rate - Afr Amer 75 mL/min (>60); Free T3 2.9 pg/mL (2.18-3.98); Globulin 3.6 g/dL (2.2-4.2); Glucose 116 mg/dL (74-106); High Density Lipoprotein 46 mg/dL; Potassium 3.6 mmol/L (3.5-5.1); Protein, Total 7.2 g/dL (6.4-8.2); Sodium Level 140 mmol/L (136-145); T4 Free Direct 1.08 ng/dL (0.76-1.46); Thyroid Stim Hormone (TSH) 4.61 uIU/mL (0.358-3.74); Triglycerides 118 mg/dL; Very Low Density Lipoprotein 24 mg/dL (5-40)
[2021-09-21 11:21] LABS: Hepatitis C Antibody Non-Reactive (Nonreactive); Vitamin B12 1488 pg/mL (211-911); Vitamin D,25 Hydroxy 92.4 ng/mL
== END | disposition home or self-care (01) ==
LOC: MTLAB 08:41
PROVIDERS: PCP Family Medicine; Referring Provider Family Medicine; Visit Provider Family Medicine
DX: E03.9 Hypothyroidism, unspecified (principal); E78.5 Hyperlipidemia, unspecified; I10 Essential (primary) hypertension; R25.2 Cramp and spasm; R53.83 Other fatigue; Z11.59 Encounter for screening for other viral diseases
CPT/HCPCS: 36415; 80053; 80061; 82306; 82607; 83735; 84439; 84443; 84481; 85027; 86803

== ENCOUNTER → 2022-01-11 | Outpatient (CLI) | payer MEDICARE, SELFPAY ==
[2022-01-11 10:51] LABS: Free T3 2.8 pg/mL (2.18-3.98); T4 Free Direct 1.13 ng/dL (0.76-1.46); Thyroid Stim Hormone (TSH) 1.73 uIU/mL (0.358-3.74)
== END | disposition home or self-care (01) ==
LOC: MTLAB 08:02
PROVIDERS: PCP Family Medicine; Referring Provider Family Medicine; Visit Provider Family Medicine
DX: E03.9 Hypothyroidism, unspecified (principal)
CPT/HCPCS: 36415; 84439; 84443; 84481

== ENCOUNTER → 2022-09-18 | Outpatient (CLI) | payer MEDICARE, SELFPAY ==
--- NOTE | 2022-09-18 12:51 | BI_ITS ---
MAMMOGRAPHY - BILATERAL SCREENING REASON FOR EXAM: Female, 72 years old. Routine annual screening examination. PERTINENT HISTORY: Non-contributory. TECHNIQUE: Digital bilateral breast chencho (3D mammographic acquisition) in the CC and MLO projections. 2-D mediolateral oblique (MLO) and craniocaudad (CC) views of both breasts were obtained. CAD: Full Field Digital Mammography with Computer Added Detection was performed. COMPARISON: Comparison is made with prior examination dated May 10, 2021 and April 22, 2018. FINDINGS: Breast Composition: The breasts are almost entirely fatty. There are no dominant masses or suspicious calcifications. Small benign-appearing bilateral axillary lymph nodes. No other significant abnormalities are identified. There has been no significant change since the prior study. BI/SCRN MAMM (CAD)W/CHENCHO BILAT IMPRESSION: Stable bilateral screening mammogram. Yearly follow-up mammogram recommended. (A) ASSESSMENT CATEGORY: BIRADS Category 2: Benign. A letter regarding these results will be sent to the patient by the facility within 30 days. Approximately 10% of breast cancers are not detected by mammography. A normal mammogram should not delay biopsy of a clinically suspicious abnormality. [id number] Electronically Signed: Jesus Vyas MD at 14:13 EDT ,
== END | disposition home or self-care (01) ==
LOC: OPBI 12:49
PROVIDERS: PCP Family Medicine; Referring Provider Family Medicine; Visit Provider Family Medicine
DX: Z12.31 Encounter for screening mammogram for malignant neoplasm of breast (principal)
CPT/HCPCS: 77063; 77067

== ENCOUNTER → 2022-11-21 | Outpatient (CLI) | payer MEDICARE, SELFPAY ==
[2022-11-21 12:11] LABS: Absolute Lymphocyte Count 2.01 X10^3/uL (0.83-4.51); Absolute Neutrophil Count 2.7 X10^3/uL (2.0-7.7); Basophil# 0.05 X10^3/uL; Basophil% 0.9 % (0-1); Eosinophil# 0.18 X10^3/uL; Eosinophils% 3.3 % (0-5); Hematocrit 41.5 % (37-47); Hemoglobin 13.5 g/dL (12.0-15.0); Lymphocyte # 2.01 X10^3/ul (0.83-4.51); Lymphocyte % 37.2 % (19-41); Mean Corp Hgb Conc 32.5 g/dL (32-36); Mean Corpuscular Hgb 31.8 pg (27.0-32.0); Mean Corpuscular Volume 97.9 fL (81-99); Mean Platelet Vol. 10.9 fl (6.2-12.0); Monocyte# 0.42 X10^3/uL; Monocyte% 7.8 % (0-10); NRBC Flagged by Analyzer 0 % (0-5); Neutrophil # 2.74 X10^3/uL (2.7-7.7); Neutrophil % 50.6 % (47-70); Platelet Count 322 K/mm3 (150-450); RBC Distribution Width SD 50.7 fl (35.1-43.9); Red Blood Count 4.24 M/mm3 (4.2-5.4); White Blood Count 5.4 K/mm3 (4.4-11.0)
[2022-11-21 12:58] LABS: AST(SGOT) 20 U/L (15-37); Alanine Aminotransfer ALT/SGPT 26 U/L (13-56); Albumin, Serum 3.5 g/dL (3.2-5.0); Alkaline Phosphatase 87 U/L (45-117); Anion Gap 6 (5-15); BUN 19 mg/dL (7-18); BUN/Creat Ratio 22.4 RATIO (10-20); Calcium,Total 9.4 mg/dL (8.5-10.1); Chloride 104 mmol/L (98-107); Cholesterol 216 mg/dL (200); Creatinine, Serum 0.85 mg/dL (0.55-1.02); EST Glomerular Filtration Rate 70 mL/min (>60); Est Glom Filt Rate - Afr Amer 85 mL/min (>60); Free T3 2.2 pg/mL (2.18-3.98); Globulin 3.6 g/dL (2.2-4.2); Glucose 97 mg/dL (74-106); High Density Lipoprotein 69 mg/dL; Potassium 4.1 mmol/L (3.5-5.1); Protein, Total 7.1 g/dL (6.4-8.2); Sodium Level 139 mmol/L (136-145); T4 Free Direct 1.22 ng/dL (0.76-1.46); Thyroid Stim Hormone (TSH) 1.34 uIU/mL (0.358-3.74); Triglycerides 75 mg/dL; Very Low Density Lipoprotein 15 mg/dL (5-40)
== END | disposition home or self-care (01) ==
LOC: BFHLAB 09:53
PROVIDERS: PCP Family Medicine; Referring Provider Family Medicine; Visit Provider Family Medicine
DX: I10 Essential (primary) hypertension (principal); E03.9 Hypothyroidism, unspecified; E78.5 Hyperlipidemia, unspecified; Z51.81 Encounter for therapeutic drug level monitoring
CPT/HCPCS: 36415; 80053; 80061; 84439; 84443; 84481; 85025

== ENCOUNTER → 2023-08-06 | Outpatient (CLI) | payer MEDICARE, SELFPAY ==
[2023-08-06 17:40] LABS: Absolute Lymphocyte Count 1.92 X10^3/uL (0.83-4.51); Absolute Neutrophil Count 5.5 X10^3/uL (2.0-7.7); Basophil# 0.07 X10^3/uL; Basophil% 0.8 % (0-1); Eosinophil# 0.14 X10^3/uL; Eosinophils% 1.7 % (0-5); Hematocrit 38.5 % (37-47); Hemoglobin 12.7 g/dL (12.0-15.0); Lymphocyte # 1.92 X10^3/ul (0.83-4.51); Lymphocyte % 23.3 % (19-41); Mean Corpuscular Hgb 31.6 pg (27.0-32.0); Mean Corpuscular Volume 95.8 fL (81-99); Mean Platelet Vol. 10.5 fl (6.2-12.0); Monocyte# 0.59 X10^3/uL; Monocyte% 7.2 % (0-10); NRBC Flagged by Analyzer 0 % (0-5); Neutrophil # 5.49 X10^3/uL (2.7-7.7); Neutrophil % 66.6 % (47-70); Platelet Count 373 K/mm3 (150-450); RBC Distribution Width CV 12.6 % (11.6-14.6); RBC Distribution Width SD 44.8 fl (35.1-43.9); Red Blood Count 4.02 M/mm3 (4.2-5.4); White Blood Count 8.2 K/mm3 (4.4-11.0)
[2023-08-06 18:29] LABS: ALB/GLOB Ratio 1.1 RATIO (0.9-2.4); AST(SGOT) 30 U/L (15-37); Alanine Aminotransfer ALT/SGPT 31 U/L (13-56); Albumin, Serum 3.9 g/dL (3.2-5.0); Alkaline Phosphatase 68 U/L (45-117); Anion Gap 9 (5-15); BUN 25 mg/dL (7-18); BUN/Creat Ratio 28.9 RATIO (10-20); Calcium,Total 9.6 mg/dL (8.5-10.1); Chloride 101 mmol/L (98-107); Creatinine, Serum 0.86 mg/dL (0.55-1.02); EST Glomerular Filtration Rate 69 mL/min (>60); Est Glom Filt Rate - Afr Amer 83 mL/min (>60); Globulin 3.4 g/dL (2.2-4.2); Glucose 85 mg/dL (74-106); Potassium 3.6 mmol/L (3.5-5.1); Protein, Total 7.3 g/dL (6.4-8.2); Sodium Level 137 mmol/L (136-145); T4 Free Direct 1.44 ng/dL (0.76-1.46); Thyroid Stim Hormone (TSH) 2.67 uIU/mL (0.358-3.74)
== END | disposition home or self-care (01) ==
PROVIDERS: PCP Family Medicine; Referring Provider Family Medicine; Visit Provider Family Medicine
DX: E03.9 Hypothyroidism, unspecified (principal); Z51.81 Encounter for therapeutic drug level monitoring
CPT/HCPCS: 36415; 80053; 84439; 84443; 84481; 85025

== ENCOUNTER → 2023-09-25 | Outpatient (CLI) | payer MEDICARE, SELFPAY ==
[2023-09-25 17:45] LABS: Absolute Lymphocyte Count 2.47 X10^3/uL (0.83-4.51); Absolute Neutrophil Count 2.6 X10^3/uL (2.0-7.7); Basophil# 0.04 X10^3/uL; Basophil% 0.7 % (0-1); Eosinophil# 0.16 X10^3/uL; Eosinophils% 2.7 % (0-5); Hematocrit 39.1 % (37-47); Hemoglobin 12.7 g/dL (12.0-15.0); Lymphocyte # 2.47 X10^3/ul (0.83-4.51); Lymphocyte % 42.4 % (19-41); Mean Corp Hgb Conc 32.5 g/dL (32-36); Mean Corpuscular Hgb 31.4 pg (27.0-32.0); Mean Corpuscular Volume 96.8 fL (81-99); Mean Platelet Vol. 11.1 fl (6.2-12.0); Monocyte# 0.51 X10^3/uL; Monocyte% 8.8 % (0-10); NRBC Flagged by Analyzer 0 % (0-5); Neutrophil # 2.63 X10^3/uL (2.7-7.7); Neutrophil % 45.2 % (47-70); Platelet Count 340 K/mm3 (150-450); RBC Distribution Width CV 13.4 % (11.6-14.6); RBC Distribution Width SD 48.1 fl (35.1-43.9); Red Blood Count 4.04 M/mm3 (4.2-5.4); White Blood Count 5.8 K/mm3 (4.4-11.0)
[2023-09-25 18:10] LABS: Erythrocyte Sedimentation Rate 10 mm/hr (0-30)
[2023-09-25 18:17] LABS: Vitamin B12 1510 pg/mL (211-911)
[2023-09-25 19:20] LABS: ALB/GLOB Ratio 1.1 RATIO (0.9-2.4); AST(SGOT) 28 U/L (15-37); Alanine Aminotransfer ALT/SGPT 32 U/L (13-56); Albumin, Serum 3.9 g/dL (3.2-5.0); Alkaline Phosphatase 70 U/L (45-117); Anion Gap 8 (5-15); BUN 15 mg/dL (7-18); BUN/Creat Ratio 19.4 RATIO (10-20); CRP 3.63 mg/L (0.0-3.0); Calcium,Total 9.7 mg/dL (8.5-10.1); Chloride 105 mmol/L (98-107); Creatinine, Serum 0.78 mg/dL (0.55-1.02); EST Glomerular Filtration Rate 78 mL/min (>60); Est Glom Filt Rate - Afr Amer 94 mL/min (>60); Ferritin 252 ng/mL (8-252); Free T3 2.6 pg/mL (2.18-3.98); Globulin 3.5 g/dL (2.2-4.2); Glucose 88 mg/dL (74-106); Magnesium 2.5 mg/dL (1.6-2.6); Potassium 3.4 mmol/L (3.5-5.1); Protein, Total 7.4 g/dL (6.4-8.2); Sodium Level 140 mmol/L (136-145); T4 Free Direct 1.51 ng/dL (0.76-1.46); Thyroid Stim Hormone (TSH) 0.72 uIU/mL (0.358-3.74)
[2023-10-01 16:46] LABS: Iron 52 ug/dL (50-170)
== END | disposition home or self-care (01) ==
LOC: BFHLAB 14:31
PROVIDERS: PCP Family Medicine; Referring Provider Family Medicine; Visit Provider Family Medicine
DX: E03.9 Hypothyroidism, unspecified (principal); R25.2 Cramp and spasm; E53.8 Deficiency of other specified B group vitamins; E61.1 Iron deficiency; M79.10 Myalgia, unspecified site; M25.50 Pain in unspecified joint
CPT/HCPCS: 36415; 80053; 82607; 82728; 82746; 83540; 83735; 84439; 84443; 84481; 85025; 85652; 86140

== ENCOUNTER → 2023-09-25 | Outpatient (CLI) | payer MEDICARE, SELFPAY ==
--- NOTE | 2023-09-25 12:37 | BI_ITS ---
MAMMOGRAPHY - BILATERAL SCREENING REASON FOR EXAM: Female, 73 years old. Routine annual screening examination. PERTINENT HISTORY: Non-contributory. TECHNIQUE: Digital bilateral breast chencho (3D mammographic acquisition) in the CC and MLO projections. 2-D mediolateral oblique (MLO) and craniocaudad (CC) views of both breasts were obtained. CAD: Full Field Digital Mammography with Computer Added Detection was performed. COMPARISON: Comparison is made with prior study dated September 18, 2022 and April 22, 2018. FINDINGS: Breast Composition: The breasts are almost entirely fatty. There are no dominant masses or suspicious calcifications. No other significant abnormalities are identified. There has been no significant change since the prior study. BI/SCRN MAMM (CAD)W/CHENCHO BILAT IMPRESSION: Stable bilateral screening mammogram. Yearly follow-up mammogram recommended. (A) ASSESSMENT CATEGORY: BIRADS Category 1: Negative. A letter regarding these results will be sent to the patient by the facility within 30 days. Approximately 10% of breast cancers are not detected by mammography. A normal mammogram should not delay biopsy of a clinically suspicious abnormality. [id number] Electronically Signed: Jesus Vyas MD at 13:31 EDT ,
== END | disposition home or self-care (01) ==
LOC: OPBI 12:35
PROVIDERS: PCP Family Medicine; Visit Provider Family Medicine
DX: Z12.31 Encounter for screening mammogram for malignant neoplasm of breast (principal)
CPT/HCPCS: 77063; 77067

== ENCOUNTER → 2024-02-24 | Outpatient (CLI) | payer MEDICARE, SELFPAY ==
[2024-02-24 12:30] LABS: Absolute Lymphocyte Count 1.85 X10^3/uL (0.83-4.51); Absolute Neutrophil Count 3.2 X10^3/uL (2.0-7.7); Basophil# 0.05 X10^3/uL; Basophil% 0.8 % (0-1); Eosinophil# 0.18 X10^3/uL; Eosinophils% 2.9 % (0-5); Hematocrit 41.7 % (37-47); Hemoglobin 13.5 g/dL (12.0-15.0); Lymphocyte # 1.85 X10^3/ul (0.83-4.51); Lymphocyte % 30.1 % (19-41); Mean Corp Hgb Conc 32.4 g/dL (32-36); Mean Corpuscular Hgb 32.1 pg (27.0-32.0); Mean Platelet Vol. 10.8 fl (6.2-12.0); Monocyte# 0.86 X10^3/uL; NRBC Flagged by Analyzer 0 % (0-5); Neutrophil # 3.18 X10^3/uL (2.7-7.7); Neutrophil % 51.9 % (47-70); Platelet Count 317 K/mm3 (150-450); RBC Distribution Width CV 13.2 % (11.6-14.6); RBC Distribution Width SD 47.9 fl (35.1-43.9); Red Blood Count 4.21 M/mm3 (4.2-5.4); White Blood Count 6.1 K/mm3 (4.4-11.0)
[2024-02-24 13:36] LABS: Free T3 2.4 pg/mL (2.18-3.98); T4 Free Direct 1.07 ng/dL (0.76-1.46)
== END | disposition home or self-care (01) ==
LOC: MTLAB 10:47
PROVIDERS: PCP Family Medicine; Referring Provider Family Medicine; Visit Provider Family Medicine
DX: E03.9 Hypothyroidism, unspecified (principal); Z51.81 Encounter for therapeutic drug level monitoring
CPT/HCPCS: 36415; 84439; 84443; 84481; 85025

== ENCOUNTER → 2024-03-02 | Outpatient (CLI) | payer MEDICARE, SELFPAY ==
--- NOTE | 2024-03-02 13:22 | US_ITS ---
STUDY: THYROID ULTRASOUND REASON FOR EXAM: Female, 73 years old. THYROID NODULE TECHNIQUE: Ultrasound evaluation of the thyroid was performed with real-time and static dejesus-scale imaging. COMPARISON: None. FINDINGS: RIGHT LOBE: The right lobe of the thyroid gland measures 3.5 x 1.3 x 0.8 cm. There is a heterogeneous echotexture. There are 2 solid nodules in the right thyroid lobe. Nodule 1 is hypoechoic and is located posterior medial mid thyroid lobe. This measures 0.71 x 0.31 x 0.60 cm. Nodule 2 is hypoechoic and located in the anterior upper thyroid lobe. This measures 0.33 x 0.15 x 0.31 cm. LEFT LOBE: The left lobe of the thyroid gland measures 3.3 x 0.8 x 0.7 cm. There is a heterogeneous echotexture. There are no demonstrated solid, cystic or complex lesions. ISTHMUS: The isthmus measures 0.13 cm. . US/Thyroid IMPRESSION: 1. Solid hypoechoic nodule 1 in the posterior and medial portion of the right mid thyroid lobe. This measures 0.71 x 0.31 x 0.60 cm. TI-RADS points: 4. TI-RADS category: TR4. This nodule is moderately suspicious but no FNA or follow-up is necessary given the small size of this nodule. 2. Solid nodule 2 in the right anterior upper thyroid lobe measures 0.33 x 0.15 x 0.31 cm. TI-RADS points: 4. TI-RADS category: TR4. This nodule is moderately suspicious but no FNA or follow-up is necessary given the small size of this nodule. Electronically Signed: Trever Aleman MD at 16:31 EDT ,
== END | disposition home or self-care (01) ==
LOC: US 13:20
PROVIDERS: PCP Family Medicine; Referring Provider Family Medicine; Visit Provider Family Medicine
DX: E04.1 Nontoxic single thyroid nodule (principal)
CPT/HCPCS: 76536

== ENCOUNTER → 2024-10-04 | Outpatient (CLI) | payer MEDICARE, SELFPAY ==
[2024-10-04 10:06] LABS: Absolute Lymphocyte Count 2.54 X10^3/uL (0.83-4.51); Absolute Neutrophil Count 2.3 X10^3/uL (2.0-7.7); Basophil# 0.06 X10^3/uL; Basophil% 1.1 % (0-1); Eosinophil# 0.18 X10^3/uL; Eosinophils% 3.2 % (0-5); Hemoglobin 13.2 g/dL (12.0-15.0); Lymphocyte # 2.54 X10^3/ul (0.83-4.51); Lymphocyte % 45.4 % (19-41); Mean Corpuscular Hgb 32.3 pg (27.0-32.0); Mean Corpuscular Volume 97.8 fL (81-99); Mean Platelet Vol. 10.4 fl (6.2-12.0); Monocyte# 0.49 X10^3/uL; Monocyte% 8.8 % (0-10); NRBC Flagged by Analyzer 0 % (0-5); Neutrophil # 2.32 X10^3/uL (2.7-7.7); Neutrophil % 41.3 % (47-70); Platelet Count 331 K/mm3 (150-450); RBC Distribution Width CV 13.3 % (11.6-14.6); RBC Distribution Width SD 48.1 fl (35.1-43.9); Red Blood Count 4.09 M/mm3 (4.2-5.4); White Blood Count 5.6 K/mm3 (4.4-11.0)
[2024-10-04 11:02] LABS: ALB/GLOB Ratio 1.4 RATIO (0.9-2.4); AST(SGOT) 21 U/L (<=31); Alanine Aminotransfer ALT/SGPT 17 U/L (<=34); Albumin, Serum 3.9 g/dL (3.4-4.8); Alkaline Phosphatase 74 U/L (35-104); Anion Gap 10 (5-15); BUN 16 mg/dL (4-19); BUN/Creat Ratio 20.2 RATIO (10-20); Calcium,Total 9.4 mg/dL (7.6-11.0); Carbon Dioxide 25.5 mmol/L (21.0-32.0); Chloride 104 mmol/L (98-108); Cholesterol 180 mg/dL (<=200); EST Glomerular Filtration Rate 79 (>60); Globulin 2.8 g/dL (2.2-4.2); Glucose 89 mg/dL (70-99); High Density Lipoprotein 47 mg/dL; Low Density Lipoprotein Calc. 107 mg/dL; Potassium 3.6 mmol/L (3.3-5.1); Protein, Total 6.7 g/dL (5.9-8.4); Sodium Level 140 mmol/L (133-145); Total Bilirubin 0.23 mg/dL (0.00-1.30); Triglycerides 130 mg/dL; Very Low Density Lipoprotein 26 mg/dL (5-40); cholesterol:hdl ratio screen 3.81
[2024-10-04 11:07] LABS: Ferritin 241 ng/mL (22-378); Free T3 2.4 pg/mL (2.18-3.98); Magnesium 2.3 mg/dL (1.5-2.2); Vitamin B12 1356 pg/mL (180-914); Vitamin D,25 Hydroxy 56.2 ng/mL (30-100)
[2024-10-04 11:19] LABS: Iron 74 ug/dL (50-170)
== END | disposition home or self-care (01) ==
LOC: MTLAB 07:04
PROVIDERS: PCP Family Medicine; Referring Provider Family Medicine; Visit Provider Family Medicine
DX: I10 Essential (primary) hypertension (principal); E03.9 Hypothyroidism, unspecified; E55.9 Vitamin D deficiency, unspecified; Z51.81 Encounter for therapeutic drug level monitoring
CPT/HCPCS: 36415; 80053; 80061; 82306; 82607; 82728; 83540; 83735; 84439; 84443; 84481; 85025

== ENCOUNTER → 2024-10-08 | Outpatient (CLI) | payer MEDICARE, SELFPAY ==
--- NOTE | 2024-10-08 13:40 | BI_ITS ---
EXAM: SCRN MAMM (CAD)W/CHENCHO BILAT 10/08/2024 CLINICAL HISTORY: F, Age 74 y/o , SCREENING TECHNIQUE: Bilateral screening digital breast tomosynthesis with 2D and 3D images. Computer aided detection. COMPARISON: Prior exam(s) dated 09/25/2023, 09/18/2022. FINDINGS: TISSUE DENSITY: The breast tissue is almost entirely fatty. Bilateral Breast Mammographic Findings: No significant masses, calcifications or other abnormalities are identified. BI/SCRN MAMM (CAD)W/CHENCHO BILAT IMPRESSION: Right Breast: BIRADS 1 NEGATIVE. Left Breast: BIRADS 1 NEGATIVE. OVERALL FINAL ASSESSMENT: BIRADS 1 NEGATIVE. RECOMMENDATION: Routine annual follow-up in 1 Year A letter with findings and recommendations will be mailed to the patient. Reading Location: [id number]
== END | disposition home or self-care (01) ==
LOC: OPBI 13:38
PROVIDERS: PCP Family Medicine; Referring Provider Family Medicine; Visit Provider Family Medicine
DX: Z12.31 Encounter for screening mammogram for malignant neoplasm of breast (principal)
CPT/HCPCS: 77063; 77067

== ENCOUNTER → 2025-02-28 | Outpatient (CLI) | payer MEDICARE, SELFPAY ==
[2025-02-28 13:19] LABS: Free T3 2.6 pg/mL (2.18-3.98)
== END | disposition home or self-care (01) ==
LOC: MTLAB 10:23
PROVIDERS: PCP Family Medicine; Referring Provider Family Medicine; Visit Provider Family Medicine
DX: E03.9 Hypothyroidism, unspecified (principal)
CPT/HCPCS: 36415; 84439; 84443; 84481

== ENCOUNTER → 2025-04-13 | Outpatient (CLI) | payer MEDICARE, SELFPAY ==
--- OUTSIDE RECORDS SUMMARY | 2025-04-13 15:50 | XMS RPT_ITS | CCD ---
Author Organization [facility] Care Team Providers Care Mill Tender Second Operator Name Role Phone SCOTT CARMICHAEL DO Primary Care Physician [phone] Dr. Michelle Ball DO Primary Care Provider Quinn KISER, Dr. Martinez Attending Provider Dr. Michelle Ball DO Referring Provider Michelle Ball Attending Unavailable Malys, Michelle Primary Care Unavailable Malys, Michelle Referring Unavailable Malys, Michelle Attending Unavailable Malys, Michelle Primary Care Unavailable Malys, Michelle Referring Unavailable Malys, Michelle Attending Unavailable Malys, Michelle Primary Care Unavailable Malys, Michelle Referring Unavailable Allergies Allergy Classification Reported Allergen(s) Allergy Type Date of Onset Reaction(s) Facility (2 sources) Acetaminophen / oxyCODONE; Translations: [acetaminophen-oxyco done] Drug Allergy [facility] (2 sources) NITROFURANTOIN, MACROCRYSTALS / Nitrofurantoin, Monohydrate; Translations: [nitrofurantoin] Drug Allergy [facility] (2 sources) Sulfamethoxazole / Trimethoprim; Translations: [sulfamethoxazole-tr imethoprim] Drug Allergy [facility] (2 sources) Sulfonamides (Antibiotic); Translations: [sulfa drugs] Drug allergy [facility] (2 sources) Glue-unknown type 1, 2 Allergy to substance Swelling [facility] Comment on above: (2-hydroxyethyl)-met hacrylate, Methyl metharylate, Ethyleneglycol-dimethacrylate, Triethyleneglycol-dimethacrylate all dental glues (5 sources) Acetaminophen Drug Allergy 04-26-20 [facility] (6 sources) oxyCODONE; Translations: [oxycodone HCl] Drug Allergy 04-26-20 [facility] (5 sources) Sulfamethoxazole Drug Allergy 04-26-20 [facility] (6 sources) Sulfonamides (Antibiotic); Translations: [Sulfa (Sulfonamide Antibiotics)] Allergy to substance 04-26-20 [facility] (5 sources) Trimethoprim Drug Allergy 04-26-20 [facility] (3 sources) DENTAL GLUES Allergy to substance 08-28-19 [facility] (1 source) MICRODANTIN Allergy to substance 08-28-19 19 [facility] Work Phone: (4 sources) Nitrofurantoin Drug Allergy 03-06-20 22 [facility] (3 sources) Adhesive agent; Translations: [adhesive] Allergy to substance 01-15-20 23 NEEDS FOLLOW-UP [facility] Comment on above: dental glue (1 source) Acetaminophen Drug Allergy 04-26-20 [facility] (1 source) Nitrofurantoin Drug Allergy 03-06-20 22 [facility] (1 source) Sulfamethoxazole Drug Allergy 04-26-20 [facility] (1 source) Trimethoprim Drug Allergy 04-26-20 [facility] Medications Current Medications Medication Drug Class(es) Dates Sig (Normalized) Sig (Original) Biotin (7 sources) Start: 10-31-2020 biotin Oral, q Day, 0 Refill(s) Start Date: 10/31/20 Status: Ordered Start: 04-14-2018 End: 04-15-2018 take 1 tablet under the tongue once daily Biotin 5,000 mcg tablet, sublingual Discontinued 5000 ug SL DAILY April 14, 2018 1:00am April 15, 2018 2:07pm cetirizine hydrochloride 10 mg oral tablet (17 sources) Histamine-1 Receptor Antagonist Start: 08-27-2018 End: 04-28-2019 take 1 tablet by mouth once daily Cetirizine (Zyrtec) 10 mg tablet Active 10 mg PO DAILY April 28, 2019 12:06pm Start: 04-14-2018 End: 04-15-2018 take 5 mg by mouth once daily as needed Cetirizine (Zyrtec) 10 mg tablet Discontinued 5 mg PO DAILY as needed April 14, 2018 1:00am April 15, 2018 2:08pm cholecalciferol 0.05 mg oral capsule (10 sources) Vitamin D Start: 04-25-2020 take 1 capsule by mouth once daily Cholecalciferol (Vitamin D3) 50 mcg (2,000 unit) capsule Active 50 ug PO DAILY April 25, 2020 1:00am Start: 04-14-2018 End: 08-27-2018 take 1 capsule by mouth once daily Cholecalciferol (Vitamin D3) 2,000 unit capsule Discontinued 2000 U PO DAILY April 14, 2018 1:00am August 27, 2018 11:10am esomeprazole 20 mg delayed release oral tablet (7 sources) Proton Pump Inhibitor Start: 04-25-2020 take 1 tablet by mouth once daily Esomeprazole Magnesium (Nexium 24hr) 20 mg tablet,delayed release (DR/EC) Active 20 mg PO DAILY April 25, 2020 1:00am Start: 05-13-2019 NexIUM 20 mg o ral delayed release capsule Dose : 20 mg = 1 cap(s), Oral, qDay, # 30 cap(s), 0 Refill(s) Start Date: 05/13/19 Status: Ordered fluticasone propionate 0.05 mg/actuat metered dose nasal spray (5 sources) Corticosteroid Start: 04-25-2020 Fluticasone Pr opionate 50 mcg/actuation spray,suspension Active 1 NMA INTRANASAL TWICE A DAY April 25, 2020 1:00am administer into each nostril Start: 04-25-2020 take 1 spray(s) nasa l route twice daily Fluticasone Propionate Active 1 SPRAY INTRANASAL TWICE A DAY April 25, 2020 1:00am administer into each nostril levothyroxine sodium 0.088 mg oral tablet (7 sources) l-Thyroxine Start: 03-26-2021 Synthroid 88 m cg (0.088 mg) oral tablet Dose : 88 mcg = 1 tab(s), Oral, qDay, send immediately, # 90 tab(s), 0 Refill(s), Pharmacy: [facility], Hypothyroidism, 167, cm, 12/11/20 13:01:00 EDT, Height, kg, 12/11/20 13:01:00 EDT, Dosing Weight Start Date: 03/26/21 Status: Ordered Start: 04-14-2018 take 1 tablet by ning th once daily Levothyroxine 88 mcg tablet Active 88 ug PO DAILY 90 90 April 14, 2018 1:00am magnesium oxide 400 mg oral capsule (10 sources) Start: 08-27-2018 End: 04-26-2021 take 1 capsule by mouth once daily as needed Magnesium Oxide 400 mg magnesium capsule Active 400 mg PO DAILY as needed April 26, 2021 10:59am Multivitamin preparation (6 sources) Start: 10-31-2020 take 1 tablet by mouth once daily Multivitamin Dose = 1 tab(s), Oral, Daily, 0 Refill(s) Start Date: 10/31/20 Status: Ordered Start: 08-27-2018 take 1 tablet by ning th once daily Multivitamin Active 1 TABLET PO DAILY August 27, 2018 11:11am Start: 08-27-2018 take 1 tablet by ning th once daily Multivitamin Active 1 TABLET PO DAILY August 27, 2018 12:00am Multivitamin tablet (1 source) Start: 08-27-2018 Multivitamin t ablet Active 1 {tbl} PO DAILY August 27, 2018 12:00am valACYclovir 1000 mg oral tablet (10 sources) Herpesvirus Nucleoside Analog DNA Polymerase Inhibitor, Herpes Simplex Virus Nucleoside Analog DNA Polymerase Inhibitor, Herpes Zoster Virus Nucleoside Analog DNA Polymerase Inhibitor Start: 04-14-2018 End: 08-27-2018 Valacyclovir 1 gram tablet Active 1000 mg PO TWICE A DAY as needed August 27, 2018 11:12am Start: 04-14-2018 End: 08-27-2018 take 1000 mg by mouth twice daily Valacyclovir Active 1000 MG PO TWICE A DAY August 27, 2018 11:12am vitamin a 2.4 mg oral capsule (7 sources) Vitamin A Start: 04-25-2020 Vitamin A 8,00 0 unit capsule Active 8000 U PO DAILY April 25, 2020 1:00am Start: 05-13-2019 vitamin A 0 Re fill(s) Start Date: 05/13/19 Status: Ordered Vitamin D2 1000 units oral tablet (2 sources) Start: 05-13-2019 Vitamin D2 100 0 units oral tablet Dose : 1,000 unit(s) = 1 tab(s), Oral, Daily, unsure of dose, 0 Refill(s) Start Date: 05/13/19 Status: Ordered Completed/Discontinued Medications Medication Drug Class(es) Dates Sig (Normalized) Sig (Original) amLODIPine 2.5 mg oral tablet (20 sources) Dihydropyridine Calcium Channel Andrea Start: 08-27-2018 End: 04-28-2019 take 1 tablet by mouth once daily Amlodipine 2.5 mg tablet Discontinued 2.5 mg PO DAILY August 27, 2018 11:33am April 28, 2019 12:07pm On Hold: evaluate edema cause Start: 07-28-2018 End: 08-27-2018 take 5 mg by mouth once daily Amlodipine 10 mg tablet Discontinued 5 mg PO DAILY July 28, 2018 4:42pm August 27, 2018 11:35am Start: 07-28-2018 End: 08-27-2018 take 5 mg by mouth once daily Amlodipine Discontinued 5 MG PO DAILY July 28, 2018 4:42pm August 27, 2018 11:35am Start: 04-15-2018 End: 07-28-2018 take 1 tablet by mouth once daily Amlodipine 10 mg tablet Discontinued 10 mg PO DAILY May 05, 2018 1:06pm July 28, 2018 4:42pm Start: 04-14-2018 End: 04-15-2018 take 1 tablet by mouth once daily Amlodipine 5 mg tablet Discontinued 5 mg PO DAILY April 14, 2018 1:00am April 15, 2018 2:08pm aspirin 81 mg delayed release oral tablet (5 sources) Platelet Aggregation Inhibitor, Nonsteroidal Anti-inflammatory Drug Start: 04-14-2018 End: 04-15-2018 Aspirin (Adult Low Dose Aspirin) 81 mg tablet,delayed release (DR/EC) Discontinued 81 mg PO DAILY April 14, 2018 1:00am April 15, 2018 2:38pm augmented betamethasone 0.5 mg/ml topical cream (5 sources) Corticosteroid Start: 04-25-2020 End: 04-26-2021 Betamethasone, Augmented 0.05 % cream Discontinued NMA TOPICAL April 25, 2020 1:00am April 26, 2021 11:00am Start: 04-25-2020 End: 04-26-2021 Betamethasone, Augmented Dis continued APPLIC TOPICAL April 25, 2020 1:00am April 26, 2021 11:00am hydroCHLOROthiazide 25 mg oral tablet (20 sources) Thiazide Diuretic Start: 04-15-2018 End: 05-16-2022 take 1 tablet by mouth once daily Hydrochlorothiazide 25 mg tablet Discontinued 25 mg PO DAILY 90 May 04, 2019 1:17pm April 25, 2020 10:18am lisinopril 40 mg oral tablet (5 sources) Angiotensin Converting Enzyme Inhibitor Start: 04-14-2018 End: 08-27-2018 take 1 tablet by mouth once daily Lisinopril 40 mg tablet Discontinued 40 mg PO DAILY April 14, 2018 1:00am August 27, 2018 11:34am losartan potassium 50 mg oral tablet (20 sources) Angiotensin 2 Receptor Andrea Start: 10-19-2018 End: 05-16-2022 take 1 tablet by mouth twice daily Losartan 50 mg tablet Discontinued 50 mg PO TWICE A DAY 180 March 23, 2021 8:49am April 26, 2021 11:18am Start: 08-27-2018 End: 11-30-2018 take 1 tablet by mouth once daily Losartan 50 mg tablet Discontinued 50 mg PO DAILY 90 November 10, 2018 10:59am November 30, 2018 11:00am melatonin 10 mg oral tablet (5 sources) Start: 04-14-2018 End: 04-15-2018 take 1 tablet by mouth at bedtime as needed Melatonin 10 mg tablet Discontinued 10 mg PO BEDTIME as needed April 14, 2018 1:00am April 15, 2018 2:08pm 24 hr metoprolol succinate 50 mg extended release oral capsule (5 sources) beta-Adrenergic Andrea Start: 04-14-2018 End: 04-15-2018 take 1 capsule by mouth once daily Metoprolol Succinate 50 mg capsule,sprinkle, ER 24hr Discontinued 50 mg PO DAILY April 14, 2018 1:00am April 15, 2018 2:37pm pimecrolimus 10 mg/ml topical cream (5 sources) Calcineurin Inhibitor Immunosuppressant Start: 04-25-2020 End: 04-26-2021 Pimecrolimus 1 % cream Discontinued NMA TOPICAL April 25, 2020 1:00am April 26, 2021 11:00am Start: 04-25-2020 End: 04-26-2021 Pimecrolimus Discontinued AP PLIC TOPICAL April 25, 2020 1:00am April 26, 2021 11:00am Problems Active Problems Problem Classification Problem Date Documented Da te Episodic/Chronic Essential hypertension (8 sources) Hypertensive disorder; Translations: [Essential hypertension] Onset: 10-07-2024 10-19-2018 Chronic Nutritional deficiencies (2 sources) Vitamin D deficiency 02-09-2019 Chronic Other female genital disorders (2 sources) Vaginal dryness 05-13-2019 Episodic Residual codes; unclassified (2 sources) Requires vaccination 02-02-2019 Episodic Thyroid disorders (3 sources) Hypothyroidism; Translations: [Hypothyroidism, unspecified] Onset: 03-11-2025 10-19-2018 Chronic Unclassified (6 sources) Patient encounter status 05-13-2019 Urinary tract infections (2 sources) Urinary tract infectious disease 05-13-2019 Episodic Past or Other Problems Problem Classification Problem Date Documented Da te Episodic/Chronic Other screening for suspected conditions (not mental disorders or infectious disease) (1 source) Encounter for screening mammogram for malignant neoplasm of breast; Translations: [Encounter for screening mammogram for malignant neoplasm of breast] Onset: 10-14-2024 Episodic Results Test Name Value Interpretation Reference Range Facility Free T3on 02-28-2025 Free T3 [Mass/Vol] 2.6 pg/mL Normal 2.18-3.98 [facility] Comment on above: Performed By: #### L 100.0100, L503.0106, L503.6550, L506.0400, L500.4050, L506.1001, L501.33231, L500.4100, L501.5200, L501.9520, L503.6150 #### [facility] [address] [place], [address] T4 Free Directon 02-28-2025 T4 FREE DIRECT 1.50 ng/dL High 0.76-1.46 [facility] Comment on above: Performed By: #### L 100.0100, L503.0106, L503.6550, L506.0400, L500.4050, L506.1001, L501.00316, L500.4100, L501.5200, L501.9520, L503.6150 #### [facility] [address] [place], [place], [address] Thyroid Stim Hormone (TSH)on 02-28-2025 TSH 1.140 uIU/mL Normal 0.300-4.200 [facility] Comment on above: Performed By: #### L 100.0100, L503.0106, L503.6550, L506.0400, L500.4050, L506.1001, L501.98569, L500.4100, L501.5200, L501.9520, L503.6150 #### [facility] [address] [place], [place], [id number] Breast imaging reportOrdered By: Corina Haley on 10-08-2024 Study report [facility] Imaging Services [address] [place], [place] [address] SCRN MAMM (CAD)W/AARON BILAT MR#: [id number] Acct: [id number] Name: DEMETRIUS BETANCUR NIKHIL Rep #: [id number] : 1950 F 74 From: Maame Haley MD PCP: Dr. Michelle Ball, Status: [facility] Study:SCRN MAMM (CAD)W/AARON BILAT Date of Exa m: 10/08/24 Exam# [id number] Ordering Dr: Paige Ball sa, DO EXAM: SCRN MAMM (CAD)W/AARON BILAT 10/08/2024 CLINICAL HISTORY: F, Age 74 y/o , SCREENING TECHNIQUE: Bilateral screening digital breast tomosynthesis with 2D and 3D images. Computeraided detection. COMPARISON: Prior exam(s) dated 09/25/2023, 09/18/2022. FINDINGS: TISSUE DENSITY: The breast tissue is almost entirely fatty. Bilateral Breast Mammographic Findings: No significant masses, calcifications or other abnormalities are identified. BI/SCRN MAMM (CAD)W/AARON BILAT IMPRESSION: Right Breast: BIRADS 1 NEGATIVE. Left Breast: BIRADS 1 NEGATIVE. OVERALL FINAL ASSESSMENT: BIRADS 1 NEGATIVE. RECOMMENDATION: Routine annual follow-up in 1 Year A letter with findings and recommendations will be mailed to the patient. Reading Location: [facility] CC: Dr. Michelle Ball DO ~ Daytime Babysitter: Signed [facility] SCRN MAMM (CAD)W/AARON BILATo n 10-08-2024 SCRN MAMM (CAD)W/AARON BILAT [facility] Imaging Services [address] [place], [place] [address] SCRN MAMM (CAD)W/AARON BILAT MR#: [id number] Acct: [id number] Name: DEMETRIUS BETANCUR Rep #: [id number] : 1950 F 74 From: Corina Haley MD PCP: Dr. Michelle Ball DO Status: [facility] Study: SCRN MAMM (CAD)W/AARON BILAT Date of Exam: 09/17 08/10 Exam# [id number] Ordering Dr: Michelle Ball DO EXAM: SCRN MAMM (CAD)W/AARON BILAT 10/08/2024 CLINICAL HISTORY: F, Age 74 y/o , SCREENING TECHNIQUE: Bilateral screening digital breast tomosynthesis with 2D and 3D images. Computer aided detection. COMPARISON: Prior exam(s) dated 09/25/2023, 09/18/2022. FINDINGS: TISSUE DENSITY: The breast tissue is almost entirely fatty. Bilateral Breast Mammographic Findings: No significant masses, calcifications or other abnormalities are identified. BI/SCRN MAMM (CAD)W/AARON BILAT IMPRESSION: Right Breast: BIRADS 1 NEGATIVE. Left Breast: BIRADS 1 NEGATIVE. OVERALL FINAL ASSESSMENT: BIRADS 1 NEGATIVE. RECOMMENDATION: Routine annual follow-up in 1 Year A letter with findings and recommendations will be mailed to the patient. Reading Location: [id number] CC: Dr. Michelle Ball DO Daytime Babysitter: Signed Normal [facility] Absolute lymphocyte countOrd ered By: Michelle Ball on 10-04-2024 Lymphocytes Auto (Unsp spec) [#/Vol] 2.54 10*3/uL 0.83-4.51 [facility] Absolute neutrophil countOrd ered By: Michelle Ball on 10-04-2024 Neutrophils (Bld) [#/Vol] 2.3 10*3/uL 2.0-7.7 [facility] Anion gap in Serum or Plasma Ordered By: Michelle Quinn on 10-04-2024 Anion gap [Moles/Vol] 10 mmol/L 5-15 [facility] Automated lymphocyte count a s percentage of total leukocytesOrdered By: Michelle Ronakmary jane on 10-04-2024 Lymphocytes/100 WBC Auto (Unsp spec) 45.4 % High 19-41 [facility] BUN/creatinine ratioOrdered By: Michelle Ball on 10-04-2024 Urea nitrogen/Creatinine [Mass ratio] 20.2 mg/mg High 10-20 [facility] Basophil percentageOrdered B y: Michelle Ball on 10-04-2024 Basophils/100 WBC (Bld) 1.1 % High 0-1 [facility] Bilirubin, totalOrdered By: Michelle Quinn on 10-04-2024 Bilirubin [Mass/Vol] 0.23 mg/dL 0.00-1.30 [facility] CBC W/Diff, Automatedon 09-16 Absolute Lymph 2.54 X10 3/uL Normal 0.83-4.51 [facility] Comment on above: Performed By: #### L 100.0100, L503.0106, L503.6550, L506.0400, L500.4050, L506.1001, L501.50090, L500.4100, L501.5200, L501.9520, L503.6150 #### [facility] [address] [facility]. [place], [place], [id number] Absolute Neut 2.3 X10 3/uL Normal 2.0-7.7 [facility] Comment on above: Performed By: #### L 100.0100, L503.0106, L503.6550, L506.0400, L500.4050, L506.1001, L501.75819, L500.4100, L501.5200, L501.9520, L503.6150 #### [facility] [address] [place], [place], [id number] (819) Basophils/100 WBC (Bld) 1.1 % High 0-1 [facility] Comment on above: Performed By: #### L 100.0100, L503.0106, L503.6550, L506.0400, L500.4050, L506.1001, L501.46419, L500.4100, L501.5200, L501.9520, L503.6150 #### [facility] [address] [facility] [place], [address] (320) Eosinophils/100 WBC (Bld) 3.2 % Normal 0-5 [facility] Comment on above: Performed By: #### L 100.0100, L503.0106, L503.6550, L506.0400, L500.4050, L506.1001, L501.01346, L500.4100, L501.5200, L501.9520, L503.6150 #### [facility] [address] [facility] [place], [place], [id number] (894) Erythrocyte distribution width (RBC) [Ratio] 13.3 % Normal 11.6-14.6 [facility] Comment on above: Performed By: #### L 100.0100, L503.0106, L503.6550, L506.0400, L500.4050, L506.1001, L501.66739, L500.4100, L501.5200, L501.9520, L503.6150 #### [facility] [address] [facility] [place] [place], [address] (721) Hematocrit (Bld) [Volume fraction] 40.0 % Normal 37-47 [facility] Comment on above: Performed By: #### L 100.0100, L503.0106, L503.6550, L506.0400, L500.4050, L506.1001, L501.18157, L500.4100, L501.5200, L501.9520, L503.6150 #### [facility] [address] [place], [address] Hemoglobin (Bld) [Mass/Vol] 13.2 g/dL Normal 12.0-15.0 [facility] Comment on above: Performed By: #### L 100.0100, L503.0106, L503.6550, L506.0400, L500.4050, L506.1001, L501.28167, L500.4100, L501.5200, L501.9520, L503.6150 #### [facility] [address] [place], [address] IG% 0.200 Normal 0.0-0.9 [facility] Comment on above: Result Comment: IG% - Immature Granulocytes (promyelocytes, myelocytes and metamyelocytes) > 1% indicates that a LEFT SHIFT is Present. Performed By: #### L 100.0100, L503.0106, L503.6550, L506.0400, L500.4050, L506.1001, L501.98274, L500.4100, L501.5200, L501.9520, L503.6150 #### [facility] [address] [place], [address] Lymphocytes/100 WBC (Bld) 45.4 % High 19-41 [facility] Comment on above: Performed By: #### L 100.0100, L503.0106, L503.6550, L506.0400, L500.4050, L506.1001, L501.74739, L500.4100, L501.5200, L501.9520, L503.6150 #### [facility] [address] [place], [address] MCH (RBC) [Entitic mass] 32.3 pg High 27.0-32.0 [facility] Comment on above: Performed By: #### L 100.0100, L503.0106, L503.6550, L506.0400, L500.4050, L506.1001, L501.84744, L500.4100, L501.5200, L501.9520, L503.6150 #### [facility] [address] [place], [address] MCHC (RBC) [Mass/Vol] 33.0 g/dL Normal 32-36 [facility] Comment on above: Performed By: #### L 100.0100, L503.0106, L503.6550, L506.0400, L500.4050, L506.1001, L501.88630, L500.4100, L501.5200, L501.9520, L503.6150 #### [facility] [address] [place], [address] MCV (RBC) [Entitic vol] 97.8 fL Normal 81-99 [facility] Comment on above: Performed By: #### L 100.0100, L503.0106, L503.6550, L506.0400, L500.4050, L506.1001, L501.35912, L500.4100, L501.5200, L501.9520, L503.6150 #### [facility] [address] [place], [address] Monocytes/100 WBC (Bld) 8.8 % Normal 0-10 [facility] Comment on above: Performed By: #### L 100.0100, L503.0106, L503.6550, L506.0400, L500.4050, L506.1001, L501.49311, L500.4100, L501.5200, L501.9520, L503.6150 #### [facility] [address] [place], [address] Neutrophils/100 WBC (Bld) 41.3 % Low 47-70 [facility] Comment on above: Performed By: #### L 100.0100, L503.0106, L503.6550, L506.0400, L500.4050, L506.1001, L501.42163, L500.4100, L501.5200, L501.9520, L503.6150 #### [facility] [address] [place], [address] Nucleated RBC (Bld) [#/Vol] 0 10*3/uL Normal 0-5 [facility] Comment on above: Performed By: #### L 100.0100, L503.0106, L503.6550, L506.0400, L500.4050, L506.1001, L501.25983, L500.4100, L501.5200, L501.9520, L503.6150 #### [facility] [address] [place], [address] Platelet mean volume (Bld) [Entitic vol] 10.4 fL Normal 6.2-12.0 [facility] Comment on above: Performed By: #### L 100.0100, L503.0106, L503.6550, L506.0400, L500.4050, L506.1001, L501.62615, L500.4100, L501.5200, L501.9520, L503.6150 #### [facility] [address] [place], [address] Platelets (Bld) [#/Vol] 331 10*3/uL Normal 150-450 [facility] Comment on above: Performed By: #### L 100.0100, L503.0106, L503.6550, L506.0400, L500.4050, L506.1001, L501.90935, L500.4100, L501.5200, L501.9520, L503.6150 #### [facility] [address] [place], [address] RBC (Bld) [#/Vol] 4.09 10*6/uL Low 4.2-5.4 [facility] Comment on above: Performed By: #### L 100.0100, L503.0106, L503.6550, L506.0400, L500.4050, L506.1001, L501.64769, L500.4100, L501.5200, L501.9520, L503.6150 #### [facility] [address] [place], [address] RDW SD 48.1 fl High 35.1-43.9 [facility] Comment on above: Performed By: #### L 100.0100, L503.0106, L503.6550, L506.0400, L500.4050, L506.1001, L501.04664, L500.4100, L501.5200, L501.9520, L503.6150 #### [facility] [address] [place], [place], [id number] WBC (Bld) [#/Vol] 5.6 10*3/uL Normal 4.4-11.0 [facility] Comment on above: Performed By: #### L 100.0100, L503.0106, L503.6550, L506.0400, L500.4050, L506.1001, L501.72056, L500.4100, L501.5200, L501.9520, L503.6150 #### [facility] [address] [place], [address] Calculated very low density lipoprotein (VLDL) cholesterol measurementOrdered By: Michelle Ball on 10-04-2024 Calculated very low density lipoprotein (VLDL) cholesterol measurement 26 mg/dL 5-40 [facility] Carbon dioxide, total [Moles /volume] in Central venous bloodOrdered By: Michelle Ball on 10-04-2024 CO2 [Moles/Vol] 25.5 mmol/L 21.0-32.0 [facility] Chloride assayOrdered By: Paige Ball on 10-04-2024 Chloride [Moles/Vol] 104 mmol/L 98-108 [facility] Comprehensive Metabolic Prof ilon 10-04-2024 Albumin [Mass/Vol] 3.9 g/dL Normal 3.4-4.8 [facility] Comment on above: Performed By: #### L 100.0100, L503.0106, L503.6550, L506.0400, L500.4050, L506.1001, L501.45129, L500.4100, L501.5200, L501.9520, L503.6150 #### [facility] [address] [place], [address] Albumin/Globulin [Mass ratio] 1.4 {ratio} Normal 0.9-2.4 [facility] Comment on above: Performed By: #### L 100.0100, L503.0106, L503.6550, L506.0400, L500.4050, L506.1001, L501.61210, L500.4100, L501.5200, L501.9520, L503.6150 #### [facility] [address] [place], [place], [id number] ALK PHOS 74 U/L Normal 35-104 [facility] Comment on above: Performed By: #### L 100.0100, L503.0106, L503.6550, L506.0400, L500.4050, L506.1001, L501.28928, L500.4100, L501.5200, L501.9520, L503.6150 #### [facility] [address] [place], [address] ALT [Catalytic activity/Vol] 17 U/L Normal <=34 [facility] Comment on above: Performed By: #### L 100.0100, L503.0106, L503.6550, L506.0400, L500.4050, L506.1001, L501.66687, L500.4100, L501.5200, L501.9520, L503.6150 #### [facility] [address] [place], [address] (920) AST [Catalytic activity/Vol] 21 U/L Normal <=31 [facility] Comment on above: Performed By: #### L 100.0100, L503.0106, L503.6550, L506.0400, L500.4050, L506.1001, L501.94882, L500.4100, L501.5200, L501.9520, L503.6150 #### [facility] [address] [place], [place], [id number] Bilirubin [Mass/Vol] 0.23 mg/dL Normal 0.00-1.30 [facility] Comment on above: Performed By: #### L 100.0100, L503.0106, L503.6550, L506.0400, L500.4050, L506.1001, L501.36533, L500.4100, L501.5200, L501.9520, L503.6150 #### [facility] [address] [place], [place], [id number] BUN/CRE 20.2 RATIO High 10-20 [facility] Comment on above: Performed By: #### L 100.0100, L503.0106, L503.6550, L506.0400, L500.4050, L506.1001, L501.33633, L500.4100, L501.5200, L501.9520, L503.6150 #### [facility] [address] [place], [address] Calcium [Mass/Vol] 9.4 mg/dL Normal 7.6-11.0 [facility] Comment on above: Performed By: #### L 100.0100, L503.0106, L503.6550, L506.0400, L500.4050, L506.1001, L501.09152, L500.4100, L501.5200, L501.9520, L503.6150 #### [facility] [address] [place], [address] Chloride [Moles/Vol] 104 mmol/L Normal 98-108 [facility] Comment on above: Performed By: #### L 100.0100, L503.0106, L503.6550, L506.0400, L500.4050, L506.1001, L501.44854, L500.4100, L501.5200, L501.9520, L503.6150 #### [facility] [address] [place], [address] CO2 [Moles/Vol] 25.5 mmol/L Normal 21.0-32.0 [facility] Comment on above: Performed By: #### L 100.0100, L503.0106, L503.6550, L506.0400, L500.4050, L506.1001, L501.13041, L500.4100, L501.5200, L501.9520, L503.6150 #### [facility] [address] [place], [address] Creatinine [Mass/Vol] 0.80 mg/dL Normal 0.70-1.20 [facility] Comment on above: Performed By: #### L 100.0100, L503.0106, L503.6550, L506.0400, L500.4050, L506.1001, L501.86891, L500.4100, L501.5200, L501.9520, L503.6150 #### [facility] [address] [place], [address] GAP 10 Normal 5-15 [facility] Comment on above: Performed By: #### L 100.0100, L503.0106, L503.6550, L506.0400, L500.4050, L506.1001, L501.32847, L500.4100, L501.5200, L501.9520, L503.6150 #### [facility] [address] [place], [place], [id number] (324) GFR/1.73 sq M.predicted among non-blacks MDRD (S/P/Bld) [Vol rate/Area] 79 mL/min/{1.73_m2} Normal >60 [facility] Comment on above: Result Comment: mL/m in/1.73m2 CKD-EPI Creatinine Equation (2020) Performed By: #### L 100.0100, L503.0106, L503.6550, L506.0400, L500.4050, L506.1001, L501.46829, L500.4100, L501.5200, L501.9520, L503.6150 #### [facility] [address] [place], [place], [id number] (200) Globulin (S) [Mass/Vol] 2.8 g/dL Normal 2.2-4.2 [facility] Comment on above: Performed By: #### L 100.0100, L503.0106, L503.6550, L506.0400, L500.4050, L506.1001, L501.68894, L500.4100, L501.5200, L501.9520, L503.6150 #### [facility] [address] [place], [place], [id number] (307) Glucose [Mass/Vol] 89 mg/dL Normal 70-99 [facility] Comment on above: Performed By: #### L 100.0100, L503.0106, L503.6550, L506.0400, L500.4050, L506.1001, L501.77798, L500.4100, L501.5200, L501.9520, L503.6150 #### [facility] [address] [place], [address] Potassium [Moles/Vol] 3.6 mmol/L Normal 3.3-5.1 [facility] Comment on above: Performed By: #### L 100.0100, L503.0106, L503.6550, L506.0400, L500.4050, L506.1001, L501.61913, L500.4100, L501.5200, L501.9520, L503.6150 #### [facility] [address] [place], [address] Sodium [Moles/Vol] 140 mmol/L Normal 133-145 [facility] Comment on above: Performed By: #### L 100.0100, L503.0106, L503.6550, L506.0400, L500.4050, L506.1001, L501.81986, L500.4100, L501.5200, L501.9520, L503.6150 #### [facility] [address] [place], [address] T PROT 6.7 g/dL Normal 5.9-8.4 [facility] Comment on above: Performed By: #### L 100.0100, L503.0106, L503.6550, L506.0400, L500.4050, L506.1001, L501.94140, L500.4100, L501.5200, L501.9520, L503.6150 #### [facility] [address] [place], [address] Urea nitrogen [Mass/Vol] 16 mg/dL Normal 4-19 [facility] Comment on above: Performed By: #### L 100.0100, L503.0106, L503.6550, L506.0400, L500.4050, L506.1001, L501.53218, L500.4100, L501.5200, L501.9520, L503.6150 #### [facility] [address] [place], [place], [id number] (987) Eosinophil percentageOrdered By: Michellekatt Ball on 10-04-2024 Eosinophils/100 WBC (Bld) 3.2 % 0-5 [facility] Erythrocyte distribution wid th ratioOrdered By: Michelle Ball on 10-04-2024 Erythrocyte distribution width (RBC) [Ratio] 13.3 % 11.6-14.6 [facility] Erythrocyte distribution wid th standard deviationOrdered By: Michelle Quinn on 10-04-2024 Erythrocyte distribution width (RBC) [Ratio] 48.1 fl High 35.1-43.9 [facility] Ferritinon 10-04-2024 Ferritin [Mass/Vol] 241 ng/mL Normal 22-378 [facility] Comment on above: Performed By: #### L 100.0100, L503.0106, L503.6550, L506.0400, L500.4050, L506.1001, L501.58159, L500.4100, L501.5200, L501.9520, L503.6150 #### [facility] [address] [place], [place], [id number] Free T3on 10-04-2024 Free T3 [Mass/Vol] 2.4 pg/mL Normal 2.18-3.98 [facility] Comment on above: Performed By: #### L 100.0100, L503.0106, L503.6550, L506.0400, L500.4050, L506.1001, L501.85513, L500.4100, L501.5200, L501.9520, L503.6150 #### [facility] [address] [place], [place], [id number] Free O0Nujqwbz By: Michelle waddell on 10-04-2024 Free T3 [Mass/Vol] 2.4 pg/mL 2.18-3.98 [facility] Glomerular filtration rate ( GFR) estimation/1.73 sq m using serum, plasma, or whole bOrdered By: Michelle Ball on 10-04-2024 GFR/1.73 sq M.predicted among non-blacks MDRD (S/P/Bld) [Vol rate/Area] 79 mL/min/{1.73_m2} >60 [facility] Comment on above: mL/min/1.73m2 CKD-EP I Creatinine Equation (2020) Hematocrit Auto (Bld) [Volum e fraction]Ordered By: Michelle Ball on 10-04-2024 Hematocrit (Bld) [Volume fraction] 40.0 % 37-47 [facility] Hemoglobin measurementOrdere d By: Michelle Ball on 10-04-2024 Hemoglobin (Bld) [Mass/Vol] 13.2 g/dL 12.0-15.0 [facility] Immature granulocytes/100 WB C Auto (Bld)Ordered By: Michelle Ball on 10-04-2024 Immature granulocytes/100 WBC (Bld) 0.200 % 0.0-0.9 [facility] Comment on above: IG% - Immature Granu locytes (promyelocytes, myelocytes and metamyelocytes) > 1% indicates that a LEFT SHIFT is Present. Ironon 10-04-2024 Iron [Mass/Vol] 74 ug/dL Normal 50-170 [facility] Comment on above: Performed By: #### L 100.0100, L503.0106, L503.6550, L506.0400, L500.4050, L506.1001, L501.80481, L500.4100, L501.5200, L501.9520, L503.6150 #### [facility] [address] [place], [address] Iron measurement (mass/mass) Ordered By: Michelle Ball on 10-04-2024 Iron (Unsp spec) [Mass/Mass] 74 ug/dL 50-170 [facility] LDL calc ser/plasOrdered By: Michelle Ball on 10-04-2024 Cholesterol in LDL [Mass/Vol] 107 mg/dL [facility] Comment on above: Kuqcimmbwv=794-936 m g/dL & Higher Pzpt=686 mg/dL or greater Laboratory - Chemistry and C hemistry - challengeOrdered By: Michelle Ball on 10-04-2024 AST [Catalytic activity/Vol] 21 U/L <32 [facility] Lipid Profileon 10-04-2024 CHOL:HDL 3.81 Normal [facility] Comment on above: Performed By: #### L 100.0100, L503.0106, L503.6550, L506.0400, L500.4050, L506.1001, L501.89291, L500.4100, L501.5200, L501.9520, L503.6150 #### [facility] [address] [place], [place], [phone] (107) Cholesterol [Mass/Vol] 180 mg/dL Normal <=200 [facility] Comment on above: Result Comment: Chol esterol level, Desirable <200 mg/dL Borderline high cholesterol 200-239 mg/dL High cholesterol >=240 mg/dL Recommendations of the NCEP Adult Treatment Panel for the following risk-cutoff thresholds for the [place] population. Performed By: #### L 100.0100, L503.0106, L503.6550, L506.0400, L500.4050, L506.1001, L501.49789, L500.4100, L501.5200, L501.9520, L503.6150 #### [facility] [address] [place], [place], [id number] Cholesterol in HDL [Mass/Vol] 47 mg/dL Normal [facility] Comment on above: Result Comment: Kristin onal Cholesterol Education Program (NCEP) guidelines: <40 mg/dL: Low HDL-cholesterol (major risk factor for CHD) >= 60 mg/dL: High HDL-cholesterol (negative risk factor for CHD) HDL-cholesterol is affected by a number of factors, e.g. smoking, exercise, hormones, sex and age. Performed By: #### L 100.0100, L503.0106, L503.6550, L506.0400, L500.4050, L506.1001, L501.19334, L500.4100, L501.5200, L501.9520, L503.6150 #### [facility] [address] [place], [place], [phone] (678) Cholesterol in LDL [Mass/Vol] 107 mg/dL Normal [facility] Comment on above: Result Comment: Bord ayzhop=124-981 mg/dL Higher Iksk=020 mg/dL or greater Performed By: #### L 100.0100, L503.0106, L503.6550, L506.0400, L500.4050, L506.1001, L501.91644, L500.4100, L501.5200, L501.9520, L503.6150 #### [facility] [address] [place], [address] Cholesterol in VLDL [Mass/Vol] 26 mg/dL Normal 5-40 [facility] Comment on above: Performed By: #### L 100.0100, L503.0106, L503.6550, L506.0400, L500.4050, L506.1001, L501.80028, L500.4100, L501.5200, L501.9520, L503.6150 #### [facility] [address] [place], [address] Triglyceride [Mass/Vol] 130 mg/dL Normal [facility] Comment on above: Result Comment: The drugs N-Acetylcysteine and Metamizole may falsely depress this assay. Normal range: <150 mg/dL Borderline High: 150-199 mg/dL High: 200-499 mg/dL Very High: >500 mg/dL Performed By: #### L 100.0100, L503.0106, L503.6550, L506.0400, L500.4050, L506.1001, L501.29096, L500.4100, L501.5200, L501.9520, L503.6150 #### [facility] [address] [facility] [place], [place], [id number] MCV (mean corpuscular volume ) determinationOrdered By: Michelle Ball on 10-04-2024 MCV (RBC) [Entitic vol] 97.8 fL 81-99 [facility] Magnesiumon 10-04-2024 Magnesium [Mass/Vol] 2.3 mg/dL High 1.5-2.2 [facility] Comment on above: Performed By: #### L 100.0100, L503.0106, L503.6550, L506.0400, L500.4050, L506.1001, L501.28177, L500.4100, L501.5200, L501.9520, L503.6150 #### [facility] [address] [facility] [place], [place], [id number] Magnesium measurement (mass/ volume)Ordered By: Mcihelle Ball on 10-04-2024 Magnesium (Unsp spec) [Mass/Vol] 2.3 mg/dL High 1.5-2.2 [facility] Mean corpuscular hemoglobin (MCH) determinationOrdered By: Michelle Ball on 10-04-2024 MCH (RBC) [Entitic mass] 32.3 pg High 27.0-32.0 [facility] Mean corpuscular hemoglobin concentration (MCHC) determinationOrdered By: Michelle Ball on 10-04-2024 MCHC (RBC) [Mass/Vol] 33.0 g/dL 32-36 [facility] Mean platelet volume determi nationOrdered By: Michelle Ball on 10-04-2024 Platelet mean volume (Bld) [Entitic vol] 10.4 fL 6.2-12.0 [facility] Monocyte percentageOrdered B y: Michelle Ball on 10-04-2024 Monocytes/100 WBC (Bld) 8.8 % 0-10 [facility] Neutrophil percentageOrdered By: Michelle Ball on 10-04-2024 Neutrophils/100 WBC (Bld) 41.3 % Low 47-70 [facility] Nucleated red blood cell per centageOrdered By: Michelle Ball on 10-04-2024 Nucleated RBC/100 WBC (Bld) [Ratio] 0 % 0-5 [facility] Platelet countOrdered By: Paige Ball on 10-04-2024 Platelets (Bld) [#/Vol] 331 10*3/uL 150-450 [facility] Potassium measurement (mass/ volume)Ordered By: Michelle Ball on 10-04-2024 Potassium (Unsp spec) [Mass/Vol] 3.6 mmol/L 3.3-5.1 [facility] RBC Auto (Bld) [#/Vol]Ordere d By: Michelle Ball on 10-04-2024 RBC (Bld) [#/Vol] 4.09 10*6/uL Low 4.2-5.4 [facility] Screening total cholesterol/ high density lipoprotein (HDL) cholesterol ratioOrdered By: Michelle Ball on 10-04-2024 Cholesterol.total/Dionna sterol in HDL [Mass ratio] 3.81 {ratio} [facility] Serum creatinine measurement (mass/volume)Ordered By: Michelle Ball on 10-04-2024 Creatinine [Mass/Vol] 0.80 mg/dL 0.70-1.20 [facility] Serum globulin measurementOr dered By: Michelle Ball on 10-04-2024 Globulin (S) [Mass/Vol] 2.8 g/dL 2.2-4.2 [facility] Serum glucose measurement (m ass/volume)Ordered By: Michelle Ball on 10-04-2024 Glucose [Mass/Vol] 89 mg/dL 70-99 [facility] Serum or plasma alanine doe otransferase (ALT) measurementOrdered By: Michelle Ball on 10-04-2024 ALT [Catalytic activity/Vol] 17 U/L <35 [facility] Serum or plasma albumin felipa urement (mass/volume)Ordered By: Michelle Ball on 10-04-2024 Albumin [Mass/Vol] 3.9 g/dL 3.4-4.8 [facility] Serum or plasma albumin/glob ulin mass ratioOrdered By: Michelle Ball on 10-04-2024 Albumin/Globulin [Mass ratio] 1.4 {ratio} 0.9-2.4 [facility] Serum or plasma alkaline maribel sphatase measurementOrdered By: Michelle Ball on 10-04-2024 ALP [Catalytic activity/Vol] 74 U/L 35-104 [facility] Serum or plasma calcium felipa urement (mass/volume)Ordered By: Michelle Ball on 10-04-2024 Calcium [Mass/Vol] 9.4 mg/dL 7.6-11.0 [facility] Serum or plasma cholesterol in HDL measurement (mass/volume)Ordered By: Michelle Ball on 10-04-2024 Cholesterol in HDL [Mass/Vol] 47 mg/dL >40 [facility] Comment on above: National Cholesterol Education Program (NCEP) guidelines:<40 mg/dL: Low HDL-cholesterol (major risk factor for CHD)>= 60 mg/dL: High HDL-cholesterol (negative risk factor for CHD)HDL-cholesterol is affected by a number of factors, e.g. smoking, exercise, hormones, sex and age. Serum or plasma cholesterol measurement (mass/volume)Ordered By: Michelle Ball on 10-04-2024 Cholesterol [Mass/Vol] 180 mg/dL <201 [facility] Comment on above: Cholesterol level, D esirable <200 mg/dLBorderline high cholesterol 200-239 mg/dLHigh cholesterol >=240 mg/dLRecommendations of the NCEP Adult Treatment Panel for the following risk-cutoff thresholds for the [place] population. Serum or plasma ferritin carter surement (mass/volume)Ordered By: Michelle Ball on 10-04-2024 Ferritin [Mass/Vol] 241 ng/mL 22-378 [facility] Serum or plasma urea nitroge n measurement (mass/volume)Ordered By: Michelle Ball on 10-04-2024 Urea nitrogen [Mass/Vol] 16 mg/dL 4-19 [facility] Sodium levelOrdered By: Michelle Ball on 10-04-2024 Sodium [Moles/Vol] 140 mmol/L 133-145 [facility] T4 Free Directon 10-04-2024 T4 FREE DIRECT 1.20 ng/dL Normal 0.76-1.46 [facility] Comment on above: Performed By: #### L 100.0100, L503.0106, L503.6550, L506.0400, L500.4050, L506.1001, L501.67908, L500.4100, L501.5200, L501.9520, L503.6150 #### [facility] [address] [place], [address] T4 freeOrdered By: Michelle Vu s on 10-04-2024 Free T4 [Mass/Vol] 1.20 ng/dL 0.76-1.46 [facility] TSH DL <= 0.005 mIU/L QnOrde red By: Michelle Ball on 10-04-2024 TSH Qn 4.220 uIU/mL High 0.300-4.200 [facility] Thyroid Stim Hormone (TSH)on 10-04-2024 TSH 4.220 uIU/mL High 0.300-4.200 [facility] Comment on above: Performed By: #### L 100.0100, L503.0106, L503.6550, L506.0400, L500.4050, L506.1001, L501.19474, L500.4100, L501.5200, L501.9520, L503.6150 #### [facility] [address] [facility] [place] [place], [address] Total proteinOrdered By: Laurie Ball on 10-04-2024 Protein [Mass/Vol] 6.7 g/dL 5.9-8.4 [facility] Triglycerides measurementOrd ered By: Michelle Ball on 10-04-2024 Triglyceride [Mass/Vol] 130 mg/dL <199 [facility] Comment on above: The drugs N-Acetylcy steine and Metamizole may falsely depress this assay. Normal range: <150 mg/dLBorderline High: 150-199 mg/dLHigh: 200-499 mg/dLVery High: >500 mg/dL Vitamin B12on 10-04-2024 Cobalamin (Vitamin B12) [Mass/Vol] 1356 pg/mL High 180-914 [facility] Comment on above: Performed By: #### L 100.0100, L503.0106, L503.6550, L506.0400, L500.4050, L506.1001, L501.66958, L500.4100, L501.5200, L501.9520, L503.6150 #### [facility] [address] [facility] [place], [place], [id number] Vitamin B12 ser/plasOrdered By: Michelle Ball on 10-04-2024 Cobalamin (Vitamin B12) [Mass/Vol] 1356 pg/mL High 180-914 [facility] Vitamin D,25 Hydroxyon 10-04 Vitamin D 25-OH 56.2 ng/mL Normal 30-100 [facility] Comment on above: Result Comment: Pham min D Status Deficiency: <20 ng/mL (50nmol/L) Insufficiency: 20-30 ng/mL (50-75 nmol/L) Sufficiency: 30-100 ng/mL (75-250 nmol/L) Toxicity: >100 ng/mL (>250 nmol/L) Performed By: #### L 100.0100, L503.0106, L503.6550, L506.0400, L500.4050, L506.1001, L501.15347, L500.4100, L501.5200, L501.9520, L503.6150 #### [facility] [address] [place], [place], [id number] White blood cell (WBC) count Ordered By: Michelle Ball on 10-04-2024 WBC (Bld) [#/Vol] 5.6 10*3/uL 4.4-11.0 [facility] Absolute lymphocyte countOrd ered By: Michelle Ball on 08-06-2023 Lymphocytes Auto (Unsp spec) [#/Vol] 1.92 10*3/uL 0.83-4.51 [facility] Automated lymphocyte count a s percentage of total leukocytesOrdered By: Michelle Ball on 08-06-2023 Lymphocytes/100 WBC Auto (Unsp spec) 23.3 % 19-41 [facility] Basophil percentageOrdered B y: Michelle Ball on 08-06-2023 Basophils/100 WBC (Bld) 0.8 % 0-1 [facility] Bilirubin [Mass/Vol] 0.50 mg/dL 0.20-1.00 [facility] Comment on above: For patients on eltr ombopag therapy, use of Dimension [place] TBIL is not recommended. Chloride [Moles/Vol] 101 mmol/L 98-107 [facility] Eosinophils/100 WBC (Bld) 1.7 % 0-5 [facility] Glucose [Mass/Vol] 85 mg/dL 74-106 [facility] Hemoglobin (Bld) [Mass/Vol] 12.7 g/dL 12.0-15.0 [facility] Monocytes/100 WBC (Bld) 7.2 % 0-10 [facility] Neutrophils (Bld) [#/Vol] 5.5 10*3/uL 2.0-7.7 [facility] Neutrophils/100 WBC (Bld) 66.6 % 47-70 [facility] Potassium [Moles/Vol] 3.6 mmol/L 3.5-5.1 [facility] Protein [Mass/Vol] 7.3 g/dL 6.4-8.2 [facility] Sodium [Moles/Vol] 137 mmol/L 136-145 [facility] WBC (Bld) [#/Vol] 8.2 10*3/uL 4.4-11.0 [facility] Determination of erythrocyte mean corpuscular volume (MCV)Ordered By: Michelle Ball on 08-06-2023 MCV (RBC) [Entitic vol] 95.8 fL 81-99 [facility] Erythrocyte distribution wid th ratioOrdered By: Michelle Ball on 08-06-2023 Erythrocyte distribution width (RBC) [Ratio] 12.6 % 11.6-14.6 [facility] Erythrocyte distribution wid th standard deviationOrdered By: Michelle Ball on 08-06-2023 Erythrocyte distribution width (RBC) [Entitic vol] 44.8 fL 35.1-43.9 [facility] Hematocrit Auto (Bld) [Volum e fraction]Ordered By: Michelle Ball on 08-06-2023 Hematocrit (Bld) [Volume fraction] 38.5 % 37-47 [facility] Immature granulocytes/100 WB C Auto (Bld)Ordered By: Michelle Ball on 08-06-2023 Immature granulocytes/100 WBC (Bld) 0.400 % 0.0-0.9 [facility] Comment on above: IG% - Immature Granu locytes (promyelocytes, myelocytes and metamyelocytes) > 1% indicates that a LEFT SHIFT is Present. Laboratory - Chemistry and C hemistry - challengeOrdered By: Michelle Ball on 08-06-2023 Albumin/Globulin [Mass ratio] 1.1 {ratio} 0.9-2.4 [facility] ALP [Catalytic activity/Vol] 68 U/L 45-117 [facility] ALT [Catalytic activity/Vol] 31 U/L 13-56 [facility] CO2 [Moles/Vol] 27.0 mmol/L 21.0-32.0 [facility] Globulin (S) [Mass/Vol] 3.4 g/dL 2.2-4.2 [facility] Urea nitrogen/Creatinine [Mass ratio] 28.9 mg/mg 10-20 [facility] - Hematology and Cell countsOrdered By: Michelle Ball on 08-06-2023 MCH (RBC) [Entitic mass] 31.6 pg 27.0-32.0 [facility] MCHC (RBC) [Mass/Vol] 33.0 g/dL 32-36 [facility] Nucleated RBC/100 WBC (Bld) [Ratio] 0 % 0-5 [facility] Platelet mean volume (Bld) [Entitic vol] 10.5 fL 6.2-12.0 [facility] Platelets (Bld) [#/Vol] 373 10*3/uL 150-450 [facility] No Panel InformationOrdered By: Michelle Ball on 08-06-2023 Estimated GFR (MDRD) Amer 83 mL/min >60 [facility] Comment on above: GFR Calc Estimated GFR (MDRD) Non-Af Amer 69 mL/min >60 [facility] Comment on above: Non- GFR Calc Free Triiodothyronine (T3) pg/dL 2.0 pg/mL 2.18-3.98 [facility] RBC Auto (Bld) [#/Vol]Ordere d By: Michelle Ball on 08-06-2023 RBC (Bld) [#/Vol] 4.02 10*6/uL 4.2-5.4 [facility] Serum or plasma calcium felipa urement (mass/volume)Ordered By: Michelle Ball on 08-06-2023 Calcium [Mass/Vol] 9.6 mg/dL 8.5-10.1 [facility] Serum or plasma creatinine m easurement (mass/volume)Ordered By: Michelle Ball on 08-06-2023 Creatinine [Mass/Vol] 0.86 mg/dL 0.55-1.02 [facility] Comment on above: The validity of the calculated GFR & GFRAA in patients over 70 years has not been determined. Clinical correlation is essential. Serum or plasma thyroid stim ulating hormone (TSH) measurement (units/volume)Ordered By: Michelle Ball on 08-06-2023 TSH Qn 2.67 uIU/mL 0.358-3.74 [facility] Serum or plasma urea nitroge n measurement (mass/volume)Ordered By: Michelle Blal on 08-06-2023 Urea nitrogen [Mass/Vol] 25 mg/dL 7-18 [facility] Thin prep Papanicolaou smear with manual screeningOrdered By: Michelle Ball on 08-06-2023 Thin prep Papanicolaou smear with manual screening 3.9 g/dL 3.2-5.0 [facility] Thin prep Papanicolaou smear with manual screening 30 U/L 15-37 [facility] Thin prep Papanicolaou smear with manual screening 9 5-15 [facility] Thin prep Papanicolaou smear with manual screening 1.44 ng/dL 0.76-1.46 [facility] Absolute lymphocyte countOrd ered By: Michelle Ball on 11-21-2022 Lymphocytes Auto (Unsp spec) [#/Vol] 2.01 10*3/uL 0.83-4.51 [facility] Basophil percentageOrdered B y: Michelle Ball on 11-21-2022 Basophils/100 WBC (Bld) 0.9 % 0-1 [facility] Bilirubin [Mass/Vol] 0.50 mg/dL 0.20-1.00 [facility] Comment on above: For patients on eltr ombopag therapy, use of Dimension [place] TBIL is not recommended. Chloride [Moles/Vol] 104 mmol/L 98-107 [facility] Cholesterol [Mass/Vol] 216 mg/dL <200 [facility] Comment on above: <200 mg/dL Desirable 200-240 mg/dL Borderline >240 mg/dL High Risk Eosinophils/100 WBC (Bld) 3.3 % 0-5 [facility] Glucose [Mass/Vol] 97 mg/dL 74-106 [facility] Neutrophils (Bld) [#/Vol] 2.7 10*3/uL 2.0-7.7 [facility] Neutrophils/100 WBC (Bld) 50.6 % 47-70 [facility] Potassium [Moles/Vol] 4.1 mmol/L 3.5-5.1 [facility] Protein [Mass/Vol] 7.1 g/dL 6.4-8.2 [facility] Sodium [Moles/Vol] 139 mmol/L 136-145 [facility] Triglyceride [Mass/Vol] 75 mg/dL <199 [facility] Comment on above: The drugs N-Acetylcy steine and Metamizole may falsely depress this assay.Serum Triglycerides Reference Interval Normal <150 mg/dL Borderline high 150 - 199 mg/dL High 200 - 499 mg/dL Very High > or = 500 mg/dL WBC (Bld) [#/Vol] 5.4 10*3/uL 4.4-11.0 [facility] Blood erythrocytes count (nu mber/volume)Ordered By: Michelle Ball on 11-21-2022 RBC (Bld) [#/Vol] 4.24 10*6/uL 4.2-5.4 [facility] Blood hemoglobin measurement (mass/volume)Ordered By: Michelle Ball on 11-21-2022 Hemoglobin (Bld) [Mass/Vol] 13.5 g/dL 12.0-15.0 [facility] Blood lymphocytes/100 leukoc ytesOrdered By: Michelle Ball on 11-21-2022 Lymphocytes/100 WBC (Bld) 37.2 % 19-41 [facility] Blood monocytes/100 leukocyt esOrdered By: Michelle Ball on 11-21-2022 Monocytes/100 WBC (Bld) 7.8 % 0-10 W [facility] Blood platelet mean volumeOr dered By: Mihcelle Ball on 11-21-2022 Platelet mean volume (Bld) [Entitic vol] 10.9 fL 6.2-12.0 [facility] Determination of erythrocyte mean corpuscular volume (MCV)Ordered By: Michelle Ball on 11-21-2022 MCV (RBC) [Entitic vol] 97.9 fL 81-99 [facility] Hematocrit Auto (Bld) [Volum e fraction]Ordered By: Michelle Ball on 11-21-2022 Hematocrit (Bld) [Volume fraction] 41.5 % 37-47 [facility] - Chemistry and C hemistry - challengeOrdered By: Michelle Ball on 11-21-2022 ALP [Catalytic activity/Vol] 87 U/L 45-117 [facility] ALT [Catalytic activity/Vol] 26 U/L 13-56 [facility] CO2 [Moles/Vol] 29.0 mmol/L 21.0-32.0 [facility] Free T4 [Mass/Vol] 1.22 ng/dL 0.76-1.46 [facility] Globulin (S) [Mass/Vol] 3.6 g/dL 2.2-4.2 [facility] Urea nitrogen/Creatinine [Mass ratio] 22.4 mg/mg 10-20 [facility] - Hematology and Cell countsOrdered By: Michelle Ball on 11-21-2022 Erythrocyte distribution width (RBC) [Entitic vol] 50.7 fL 35.1-43.9 [facility] Erythrocyte distribution width (RBC) [Ratio] 14.0 % 11.6-14.6 [facility] Immature granulocytes/100 WBC (Bld) 0.200 % 0.0-0.9 [facility] Comment on above: IG% - Immature Granu locytes (promyelocytes, myelocytes and metamyelocytes) > 1% indicates that a LEFT SHIFT is Present. MCH (RBC) [Entitic mass] 31.8 pg 27.0-32.0 [facility] Nucleated RBC/100 WBC (Bld) [Ratio] 0 % 0-5 [facility] MCHC Auto (RBC) [Mass/Vol]Or dered By: Michelle Ball on 11-21-2022 MCHC (RBC) [Mass/Vol] 32.5 g/dL 32-36 [facility] No Panel InformationOrdered By: Michelle Ball on 11-21-2022 Estimated GFR (MDRD) Amer 85 mL/min >60 [facility] Comment on above: GFR Calc Estimated GFR (MDRD) Non-Af Amer 70 mL/min >60 [facility] Comment on above: Non- GFR Calc Free Triiodothyronine (T3) pg/dL 2.2 pg/mL 2.18-3.98 [facility] Thyroid Stimulating Hormone (TSH) 1.34 uIU/mL 0.358-3.74 [facility] Platelets bldOrdered By: Laurie Ball on 11-21-2022 Platelets (Bld) [#/Vol] 322 10*3/uL 150-450 [facility] Serum or plasma albumin felipa urement (mass/volume)Ordered By: Michelle Ball on 11-21-2022 Albumin [Mass/Vol] 3.5 g/dL 3.2-5.0 [facility] Serum or plasma albumin/glob ulin mass ratioOrdered By: Michelle Ball on 11-21-2022 Albumin/Globulin [Mass ratio] 1.0 {ratio} 0.9-2.4 [facility] Serum or plasma calcium felipa urement (mass/volume)Ordered By: Michelle Ball on 11-21-2022 Calcium [Mass/Vol] 9.4 mg/dL 8.5-10.1 [facility] Serum or plasma cholesterol in HDL measurement (mass/volume)Ordered By: Michelle Ball on 11-21-2022 Cholesterol in HDL [Mass/Vol] 69 mg/dL >40 [facility] Comment on above: The drugs N-Acetylcy steine and Metamizole may falsely depress this assay. Reference Range HDL <40 mg/dL Low HDL Cholesterol HDL >or= 60 mg/dL High HDL Cholesterol Serum or plasma cholesterol in VLDL measurement (mass/volume)Ordered By: Michelle Ball on 11-21-2022 Cholesterol in VLDL [Mass/Vol] 15 mg/dL 5-40 [facility] Serum or plasma creatinine m easurement (mass/volume)Ordered By: Michelle Ball on 11-21-2022 Creatinine [Mass/Vol] 0.85 mg/dL 0.55-1.02 [facility] Comment on above: The validity of the calculated GFR & GFRAA in patients over 70 years has not been determined. Clinical correlation is essential. Serum or plasma low density lipoprotein (LDL) cholesterol measurement (mass/volume)Ordered By: Michelle Ball on 11-21-2022 Cholesterol in LDL [Mass/Vol] 132 mg/dL 0-130 [facility] Serum or plasma urea nitroge n measurement (mass/volume)Ordered By: Michelle Ball on 11-21-2022 Urea nitrogen [Mass/Vol] 19 mg/dL 7-18 [facility] Thin prep Papanicolaou smear with manual screeningOrdered By: Michelle Ball on 11-21-2022 Thin prep Papanicolaou smear with manual screening 20 U/L 15-37 [facility] Thin prep Papanicolaou smear with manual screening 6 5-15 [facility] Basophil percentageon 2021 Bilirubin [Mass/Vol] 0.40 mg/dL 0.20-1.00 [facility] Work Phone: Comment on above: For patients on eltr ombopag therapy, use of Dimension [place] TBIL is not recommended. Chloride [Moles/Vol] 104 mmol/L 98-107 [facility] Work Phone: Cholesterol [Mass/Vol] 180 mg/dL <200 [facility] Work Phone: Comment on above: <200 mg/dL Desirable 200-240 mg/dL Borderline >240 mg/dL High Risk Glucose [Mass/Vol] 116 mg/dL 74-106 [facility] Work Phone: Comment on above: Fasting Glucose resu lt from 100 to 125 mg/dL suggests IMPAIRED HOMEOSTASIS per A.D.A. criteria. Potassium [Moles/Vol] 3.6 mmol/L 3.5-5.1 [facility] Work Phone: [phone] Protein [Mass/Vol] 7.2 g/dL 6.4-8.2 [facility] Work Phone: [phone] Sodium [Moles/Vol] 140 mmol/L 136-145 [facility] Work Phone: [phone] Triglyceride [Mass/Vol] 118 mg/dL [facility] Work Phone: [phone] Comment on above: The drugs N-Acetylcy steine and Metamizole may falsely depress this assay.Serum Triglycerides Reference Interval Normal <150 mg/dL Borderline high 150 - 199 mg/dL High 200 - 499 mg/dL Very High > or = 500 mg/dL WBC (Bld) [#/Vol] 6.1 10*3/uL 4.4-11.0 [facility] Work Phone: [phone] Blood erythrocytes count (nu mber/volume)on 09-21-2021 RBC (Bld) [#/Vol] 4.26 10*6/uL 4.2-5.4 [facility] Work Phone: [phone] Blood hemoglobin measurement (mass/volume)on 09-21-2021 Hemoglobin (Bld) [Mass/Vol] 13.7 g/dL 12.0-15.0 [facility] Work Phone: [phone] Blood platelet mean volumeon 09-21-2021 Platelet mean volume (Bld) [Entitic vol] 10.6 fL 6.2-12.0 [facility] Work Phone: [phone] Determination of erythrocyte mean corpuscular volume (MCV)on 09-21-2021 MCV (RBC) [Entitic vol] 98.8 fL 81-99 [facility] Work Phone: [phone] Hematocrit Auto (Bld) [Volum e fraction]on 09-21-2021 Hematocrit (Bld) [Volume fraction] 42.1 % 37-47 [facility] Work Phone: [phone] Laboratory - Chemistry and C hemistry - challengeon 09-21-2021 ALP [Catalytic activity/Vol] 83 U/L 45-117 [facility] Work Phone: [phone] ALT [Catalytic activity/Vol] 44 U/L 13-56 [facility] Work Phone: [phone] CO2 [Moles/Vol] 29.0 mmol/L 21.0-32.0 [facility] Work Phone: [phone] Cobalamin (Vitamin B12) [Mass/Vol] 1488 pg/mL 211-911 [facility] Work Phone: [phone] Free T4 [Mass/Vol] 1.08 ng/dL 0.76-1.46 [facility] Work Phone: [phone] Globulin (S) [Mass/Vol] 3.6 g/dL 2.2-4.2 [facility] Work Phone: [phone] Magnesium [Mass/Vol] 2.0 mg/dL 1.6-2.6 [facility] Work Phone: [phone] Urea nitrogen/Creatinine [Mass ratio] 18.9 mg/mg 10-20 [facility] Work Phone: [phone] Laboratory - Hematology and Cell countson 09-21-2021 Erythrocyte distribution width (RBC) [Entitic vol] 48.0 fL 35.1-43.9 [facility] Work Phone: [phone] Erythrocyte distribution width (RBC) [Ratio] 13.2 % 11.6-14.6 [facility] Work Phone: [phone] MCH (RBC) [Entitic mass] 32.2 pg 27.0-32.0 [facility] Work Phone: [phone] MCHC Auto (RBC) [Mass/Vol]on 09-21-2021 MCHC (RBC) [Mass/Vol] 32.5 g/dL 32-36 [facility] Work Phone: No Panel Informationon 09-21 Estimated GFR (MDRD) Amer 75 mL/min >60 [facility] Work Phone: [phone] Comment on above: GFR Calc Estimated GFR (MDRD) Non-Af Amer 62 mL/min >60 [facility] Work Phone: Comment on above: Non- GFR Calc Free Triiodothyronine (T3) pg/dL 2.9 pg/mL 2.18-3.98 [facility] Work Phone: [phone] Hepatitis C Antibody Non-Reactive Nonreactive [facility] Work Phone: [phone] Comment on above: Non Reactive: < 0.8 Equivocal: >/= 0.8 to < 1.0 Reactive: >/= 1.0The CDC recommends that a reactive/equivocal HCV antibody result be followed up by the HCV Nucleic Acid Amplificationtest (353161) Thyroid Stimulating Hormone (TSH) 4.61 uIU/mL 0.358-3.74 [facility] Work Phone: [phone] Vitamin D 25-Hydroxy 92.4 ng/mL [facility] Work Phone: Comment on above: Vitamin D 25(OH) Sta tus Range Deficiency <20 ng/mL (50nmol/L) Insufficiency 20 - 30 ng/mL (50 - 75 nmol/L) Sufficiency 30 - 100 ng/mL (75 - 250 nmol/L) Toxicity >100 ng/mL (>250 nmol/L) Platelets bldon 09-21-2021 Platelets (Bld) [#/Vol] 367 10*3/uL 150-450 [facility] Work Phone: [phone] Serum or plasma albumin felipa urement (mass/volume)on 09-21-2021 Albumin [Mass/Vol] 3.6 g/dL 3.2-5.0 [facility] Work Phone: [phone] Serum or plasma albumin/glob ulin mass ratioon 09-21-2021 Albumin/Globulin [Mass ratio] 1.0 {ratio} 0.9-2.4 [facility] Work Phone: [phone] Serum or plasma calcium felipa urement (mass/volume)on 09-21-2021 Calcium [Mass/Vol] 9.0 mg/dL 8.5-10.1 [facility] Work Phone: [phone] Serum or plasma cholesterol in HDL measurement (mass/volume)on 09-21-2021 Cholesterol in HDL [Mass/Vol] 46 mg/dL [facility] Work Phone: Comment on above: The drugs N-Acetylcy steine and Metamizole may falsely depress this assay. Reference Range HDL <40 mg/dL Low HDL Cholesterol HDL >or= 60 mg/dL High HDL Cholesterol Serum or plasma cholesterol in VLDL measurement (mass/volume)on 09-21-2021 Cholesterol in VLDL [Mass/Vol] 24 mg/dL 5-40 [facility] Work Phone: Serum or plasma creatinine m easurement (mass/volume)on 09-21-2021 Creatinine [Mass/Vol] 0.95 mg/dL 0.55-1.02 [facility] Work Phone: Comment on above: The validity of the calculated GFR & GFRAA in patients over 70 years has not been determined. Clinical correlation is essential. Serum or plasma low density lipoprotein (LDL) cholesterol measurement (mass/volume)on 09-21-2021 Cholesterol in LDL [Mass/Vol] 110 mg/dL 0-130 [facility] Work Phone: Serum or plasma urea nitroge n measurement (mass/volume)on 09-21-2021 Urea nitrogen [Mass/Vol] 18 mg/dL 7-18 [facility] Work Phone: Thin prep Papanicolaou smear with manual screeningon 09-21-2021 Thin prep Papanicolaou smear with manual screening 26 U/L 15-37 [facility] Work Phone: [phone] Thin prep Papanicolaou smear with manual screening 7 5-15 [facility] Work Phone: MA MAMMOGRAM SCREENING BILAT ERAL W/TOMOon 05-10-2021 MA MAMMOGRAM SCREENING BILATERAL W/AARON ORIGINAL FROM: [id number] [place], [place] [address] PROCEDURE FOR: DEMETRIUS BETANCUR [address] [place] [address] Home: PID#: [id number] Exam#: [id number] : 1950 Age: 71 TO: SCOTT CARMICHAEL DO [address] [address] Fax: NO FAX EXAMINATION: SCREENING DIGITAL BILATERAL MAMMOGRAM WITH TOMOSYNTHESIS, 05/10/2021 TECHNIQUE: Screening mammography of the bilateral breasts was performed with tomosynthesis. 2D standard and 3D tomosynthesis combination imaging performed through both breasts in the MLO and CC projection. Computer aided detection was utilized in the interpretation of this exam. COMPARISON: 05/09/2020, 04/29/2019 HISTORY: Breast cancer screening. FINDINGS: BREAST DENSITY: Scattered fibroglandular tissue There are benign calcifications in both breasts. There are no significant masses or calcifications. IMPRESSION: No mammographic evidence of malignancy. Continued screening with annual mammograms is recommended. BIRADS: MAMMOGRAM BI-RADS: 2: Benign finding RECALL: 1 year screening RECALL TYPE: mammo LETTER SENT: Normal BI-RADS 1 and 2 Interpreted by: Minesh Jacinto MD Preliminary Report By: Minesh Jacinto MD Electronically signed By Minesh Jacinto MD Dictated Date: 05/16/2021 11:14:26 PM Prelim Date: 05/16/2021 11:16:16 PM Sign Date: 05/16/2021 11:16:16 PM Ordering Provider: SCOTT CARMICHAEL [employer]: LIBERTAD PARKS RT(R) (M) letter sent: Normal BI-RADS 1 and 2 Mammogram BI-RADS: 2 Benign Normal [facility] ([place]) .GFRon 04-19-2021 GFR 76 ml/min/1.73sqm Normal [facility] ([place] Comment on above: Result Comment: GFR Population mean for , Non- Americans Ages 20-29 = 116 mL/min/1.73 sq.m. Ages 30-39 = 107 mL/min/1.73 sq.m. Ages 40-49 = 99 mL/min/1.73 sq.m. Ages 50-59 = 93 mL/min/1.73 sq.m. Ages 60-69 = 85 mL/min/1.73 sq.m. Ages 70+ = 75 mL/min/1.73 sq.m. Chronic Kidney Disease: Less than 60 mL/min/1.73 square meters End Stage Renal Disease: Less than 15 mL/min/1.73 square meters Performed By: #### T SH, CMP, GFR #### [address] [address] GFR Non- 63 ml/min/1.73sqm Normal [facility] ([place]) Comment on above: Result Comment: GFR Population mean for , Non- Americans Ages 20-29 = 116 mL/min/1.73 sq.m. Ages 30-39 = 107 mL/min/1.73 sq.m. Ages 40-49 = 99 mL/min/1.73 sq.m. Ages 50-59 = 93 mL/min/1.73 sq.m. Ages 60-69 = 85 mL/min/1.73 sq.m. Ages 70+ = 75 mL/min/1.73 sq.m. Chronic Kidney Disease: Less than 60 mL/min/1.73 square meters End Stage Renal Disease: Less than 15 mL/min/1.73 square meters Performed By: #### T SH, CMP, GFR #### [address] [address] CMPon 04-19-2021 Albumin Level 3.9 G/dL Normal 3.4-4.8 [facility] ([place]) Comment on above: Performed By: #### T SH, CMP, GFR #### [address] [address] Albumin/Globulin [Mass ratio] 1.1 {ratio} Normal 1.1-2.5 [facility] ([place] Comment on above: Performed By: #### T SH, CMP, GFR #### [address] [address] ALP [Catalytic activity/Vol] 94 U/L Normal 40-135 [facility] ([place] Comment on above: Performed By: #### T SH, CMP, GFR #### [address] [place], [place] [address] ALT [Catalytic activity/Vol] 46 U/L Normal 14-59 [facility] ([place]) Comment on above: Performed By: #### T BATSHEVA, CMP, GFR #### [address] [address] AST [Catalytic activity/Vol] 30 U/L Normal 10-40 [facility] ([place] Comment on above: Performed By: #### T SH, CMP, GFR #### [address] [address] Bili Total 0.4 mg/dL Normal 0.2-1.0 [facility] ([place] Comment on above: Result Comment: Use of this assay is not recommended for patients undergoing treatment with eltrombopag due to the potential for falsely elevated results. Performed By: #### T BATSHEVA, CMP, GFR #### [address] [address] BUN/Creatinine Ratio 12 ratio Normal 7-27 [facility] ([place]) Comment on above: Performed By: #### T BATSHEVA, CMP, GFR #### [address] [address] Calcium [Mass/Vol] 9.3 mg/dL Normal 8.4-10.2 [facility] ([place]) Comment on above: Performed By: #### T BATSHEVA, CMP, GFR #### [address] [address] Chloride [Moles/Vol] 103 mmol/L Normal 98-107 [facility] ([place]) Comment on above: Performed By: #### T BATSHEVA, CMP, GFR #### [address] [address] CO2 [Moles/Vol] 30 mmol/L Normal 23-31 [facility] ([place]) Comment on above: Performed By: #### T BATSHEVA, CMP, GFR #### [address] [address] Creatinine [Mass/Vol] 0.89 mg/dL Normal 0.55-1.02 [facility] ([place]) Comment on above: Performed By: #### T SH, CMP, GFR #### [address] [address] Electrolyte Balance 9.0 mEq/L Normal [facility] ([place]) Comment on above: Performed By: #### T SH, CMP, GFR #### [address] [address] Globulin 3.4 G/dL Normal [facility] ([place]) Comment on above: Performed By: #### T SH, CMP, GFR #### [address] [address] Glucose [Mass/Vol] 117 mg/dL High 80-115 [facility] ([place]) Comment on above: Performed By: #### T SH, CMP, GFR #### [address] [address] Potassium [Moles/Vol] 3.9 mmol/L Normal 3.5-5.1 [facility] ([place]) Comment on above: Performed By: #### T SH, CMP, GFR #### [address] [address] Sodium [Moles/Vol] 142 mmol/L Normal 136-145 [facility] ([place]) Comment on above: Performed By: #### T SH, CMP, GFR #### [address] [address] Total Protein 7.3 G/dL Normal 6.4-8.2 [facility] ([place]) Comment on above: Performed By: #### T SH, CMP, GFR #### [address] [address] Urea nitrogen [Mass/Vol] 11 mg/dL Normal 7-18 [facility] ([place]) Comment on above: Performed By: #### T SH, CMP, GFR #### [address] [address] LABORATORYOrdered By: Hilary Thurman on 04-19-2021 Albumin BCP dye [Mass/Vol] 3.9 G/dL Invalid Interpretation Code 3.4 - 4.8 G/dL AO ADM SS Albumin/Globulin [Mass ratio] 1.1 {ratio} Invalid Interpretation Code 1.1 - 2.5 ratio AO ADM SS ALP [Catalytic activity/Vol] 94 U/L Invalid Interpretation Code 40 - 135 U/L AO ADM SS ALT With P-5'-P [Catalytic activity/Vol] 46 U/L Invalid Interpretation Code 14 - 59 U/L AO ADM SS AST With P-5'-P [Catalytic activity/Vol] 30 U/L Invalid Interpretation Code 10 - 40 U/L AO ADM SS Bilirubin [Mass/Vol] 0.4 mg/dL Invalid Interpretation Code 0.2 - 1.0 mg/dL AO ADM SS Calcium [Mass/Vol] 9.3 mg/dL Invalid Interpretation Code 8.4 - 10.2 mg/dL AO ADM SS Chloride [Moles/Vol] 103 mmol/L Invalid Interpretation Code 98 - 107 mmol/L AO ADM SS CO2 [Moles/Vol] 30 mmol/L Invalid Interpretation Code 23 - 31 mmol/L AO ADM SS Creatinine [Mass/Vol] 0.89 mg/dL Invalid Interpretation Code 0.55 - 1.02 mg/dL AO ADM SS Electrolyte Balance 9.0 mEq/L Invalid Interpretation Code AO ADM SS Globulin 3.4 G/dL Invalid Interpretation Code AO ADM SS Glucose [Mass/Vol] 117 mg/dL Invalid Interpretation Code 80 - 115 mg/dL AO ADM SS Potassium [Moles/Vol] 3.9 mmol/L Invalid Interpretation Code 3.5 - 5.1 mmol/L AO ADM SS Protein [Mass/Vol] 7.3 G/dL Invalid Interpretation Code 6.4 - 8.2 G/dL AO ADM SS Sodium [Moles/Vol] 142 mmol/L Invalid Interpretation Code 136 - 145 mmol/L AO ADM SS TSH Qn 3.70 m[IU]/L Invalid Interpretation Code 0.36 - 3.74 mcIU/mL AO ADM SS Urea nitrogen [Mass/Vol] 11 mg/dL Invalid Interpretation Code 7 - 18 mg/dL AO ADM SS Urea nitrogen/Creatinine [Mass ratio] 12 ratio Invalid Interpretation Code 7 - 27 ratio AO ADM SS LABORATORYOrdered By: SYSTEM SYSTEM on 04-19-2021 GFR 76 ml/min/1.73sqm Invalid Interpretation Code AO Chemistry S GFR Non- 63 ml/min/1.73sqm Invalid Interpretation Code AO Chemistry S TSHon 04-19-2021 TSH Qn 3.70 m[IU]/L Normal 0.36-3.74 [facility] ([place]) Comment on above: Performed By: #### T SH, CMP, GFR #### [address] [place], [place] [address] XR HAND MINIMUM 3 VIEWS LEFT on 10-09-2020 XR HAND MINIMUM 3 VIEWS LEFT ORIGINAL XR HAND 3 VIEWS LEFT CLINICAL STATEMENT: lt hand pain. COMPARISON: None FINDINGS: There is no acute fracture or dislocation. Mild narrowing of interphalangeal joints is present in the fingers. There are small soft tissue calcifications lateral to the middle phalanx of the LEFT index finger. No bone erosions are present. No foreign body is detected in the soft tissue. 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 Interpreted By: Vadim Parker MD Preliminary Report By: Vadim Parker MD Electronically Signed By: Vadim Parker MD Dictated Date: 10/09/2020 3:26:51 AM Prelim Date: 10/09/2020 3:26:51 AM Sign Date: 10/09/2020 3:32:14 AM Ordering Provider:Trey Reyes [facility] ([place]) Encounters Encounter Date Encounter Type Care Provider Facility Start: 02-28-2025 End: 02-28-2025 ambulatory Michelle Ball Facility:[facility] Start: 10-08-2024 End: 10-08-[address] Michelle Ball DO Work Phone: [facility] Work Phone: Start: 10-08-2024 End: 10-08-[address] Michelle Ball DO -Outpatient Breast Imaging Work Phone: Start: 10-08-2024 End: 10-08-2024 ambulatory Michelle Ball Facility:[facility] Start: 10-04-2024 End: 10-04-[address] Michelle Ball DO -Laboratory [place] Work Phone: Start: 10-04-2024 End: 10-04-2024 ambulatory Michelle Ball Facility:[facility] Start: 08-06-2023 End: 08-06-2023 ambulatory [facility] Work Phone: Start: 08-06-2023 End: 08-06-2023 [facility] Start: 11-21-2022 End: 11-21-2022 ambulatory [facility] Work Phone: Start: 11-21-2022 End: 11-21-2022 [facility] Start: 09-18-2022 End: 09-18-2022 ambulatory [facility] Work Phone: Start: 09-18-2022 End: 09-18-2022 Patient encounter procedure [facility] Start: 09-21-2021 End: 09-21-2021 [facility] Start: 05-10-2021 End: 05-10-2021 Patient encounter procedure SCOTT CARMICHAEL DO [facility] Start: 04-19-2021 End: 04-19-2021 Patient encounter procedure SCOTT CARMICHAEL DO [facility] Procedures Date Procedure Procedure Detail Performing Clinician Start: 10-08-2024 Screening mammography Sergio Ball DO Work Phone: Start: 10-04-2024 Vitamin D, 25-hydrox y measurement Dr. Michelle Ball DO Work Phone: Comment on above: Vitamin D StatusDefi ciency: <20 ng/mL (50nmol/L)Insufficiency: 20-30 ng/mL (50-75 nmol/L)Sufficiency: 30-100 ng/mL (75-250 nmol/L)Toxicity: >100 ng/mL (>250 nmol/L) Start: 09-18-2022 Screening mammography Start: 10-18-2017 Colonoscopy SCOTT COTTO DO Start: 05-19-2000 Excision of bunion ANDERSON SHONDA NOONANY DO Start: 05-19-1998 Hysterectomy SCOTT COTTO DO Start: 05-19-1957 Tonsillectomy SCOTT Terrazas SURJITAIDEN DO Immunizations Immunization Date Immunization Notes Care Provider [facility] 07-12-2020 SARS-CoV-2 mRNA (tozinameran) vaccine SCOTT AMOL DO [facility] 06-23-2020 SARS-CoV-2 mRNA (tozinameran) vaccine SCOTT AMOL DO [facility] 02-21-2020 influenza virus vaccine, unspecified formulation SCOTT AMOL DO [facility] 02-02-2019 influenza, injectabl e, quadrivalent, preservative free; Translations: [Fluarix PF Quadrivalent ] SCOTT AMOL DO [facility] 02-13-2018 influenza virus vaccine, unspecified formulation SCOTT AMOL DO [facility] 03-13-2017 influenza virus vaccine, unspecified formulation SCOTT AMOL DO [facility] 03-20-2016 influenza virus vaccine, unspecified formulation SCOTT AMOL DO [facility] 02-17-2016 influenza virus vaccine, unspecified formulation SCOTT AMOL DO [facility] 02-16-2015 influenza virus vaccine, unspecified formulation SCOTT CARMICHAEL DO [facility] 02-12-2015 influenza virus vaccine, unspecified formulation SCOTT CARMICHAEL DO [facility] 03-11-2014 influenza virus vaccine, unspecified formulation SCOTT CARMICHAEL DO [facility] Payers Date Payer Category Payer Self-pay [id number] 2024 Private Health Insurance 101 [id number] Unknown [id number] Unknown [id number] Unknown [id number] [id number] Social History Date Type Detail Facility Start: 10-31-2020 End: 04-26-2021 Never smoked tobacco (finding) [facility] Start: 1950 Sex Assigned At Female A [facility] Start: 04-26-2021 [facility] Clinical Note 12-14-2020 Note Date & Type Note Facility 12-14-2020 Note . MICRO - Microbiology PROCEDURE: Urine Culture [*1] SOURCE: Urine, Clean Catch BODY SITE: COLLECTED DATE/TIME: 12/11/2020 12:57 EDT RECEIVED DATE/TIME: 12/12/2020 14:17 EDT START DATE/TIME: 12/12/2020 14:17 EDT FREE TEXT SOURCE: FINAL REPORTS Final Report [] Verified Date/Time/Personnel: 12/14/2020 08:22 EDT >100,000 cfu/ml Escherichia coli PRELIMINARY REPORTS Preliminary Report [] Verified Date/Time/Personnel: 12/13/2020 13:33 EDT >100,000 cfu/ml Escherichia coli SHANNA to follow SUSCEPTIBILITY RESULTS Escherichia coli Antibiotic SHANNA Dilut SHANNA Inter Ampicillin <=8 Susceptible Ampicillin/ <=4/2 Susceptible Sulbactam Aztreonam <=4 Susceptible Cefazolin <=2 Susceptible Ciprofloxacin <=0.25 Susceptible Ertapenem <=0.5 Susceptible Gentamicin <=2 Susceptible Imipenem <=1 Susceptible Levofloxacin <=0.5 Susceptible Meropenem <=1 Susceptible Nitrofurantoin <=32 Susceptible Trimethoprim/ <=0.5/9.5 Susceptible Sulfa Performing Locations *1: This test was performed at: [facility], [address] [place] [address], [address] [place] [address] ([place]) Comment on above: Performed By: #### C UR #### [place] [id number] Evaluation + Plan note 10-05-2020 Radiology Note Date & Type Note Facility 10-05-2020 Evaluation + Plan note Future Scheduled TestsXR Hand Minimum 3 Views Left 10/05/20 [facility] Evaluation + Plan note Radiology Note Date & Type Note Facility Evaluation + Plan note Future Appointments Appointment Date:05/10/2021 11:00:00 AM Scheduled Provider: Location:RAD Appointment Type:[facility] Mammogram Screening Bilateral w/ Aaron Future Scheduled TestsXR Hand Minimum 3 Views Left 10/05/20[facility] Mammo Screening Bilateral w/ Aaron 05/10/21 [facility] Evaluation note Note Date & Type Note Facility Evaluation note No assessment information availa [facility] Work Phone: Hospital course Narrative Note Date & Type Note Facility Hospital course Narrative No data available for this section [facility] Hospital Discharge instructions Note Date & Type Note Facility Hospital Discharge instructions No data available for this section [facility] Reason for referral (narrative) Note Date & Type Note Facility Reason for referral (narrative) No reason for referral information available [facility] Work Phone: Summary Purpose Family History No Family History Records Found Relationship Condition Age at Onset Recorded Date/T joann father Myocardial infarction Unknown mother Diabetes mellitus Unknown Malignant neoplasm Unknown Advance Directives No Advanced Directives Records FoundNo Advanced Directives Records Found Chief Complaint and Reason for Visit Chief Complaint SCREENING Chief Complaint Admit Date FASTING October 04, 2024 7:03a m SCREENING October 08, 2024 1:38p m Additional Source Comments INFORMATION SOURCE (unrecogn ized section and content) DATE CREATED AUTHOR 05/18/2021 [facility] ([place]) DATE CREATED AUTHOR AUTHOR'S ORGANIZ ATION 03/13/2025 [facility] Goals (unrecognized section and content) Goals may be documented in a n alternate section Care Teams (unrecognized sec tion and content) Team Status: Active Member Role Status Dates No Primary Care Physician Family Provider Active Dr. Scott Carmichael DO Primary Care Provider Active Team Status: Inactive Member Role Status Dates Dr. Scott Carmichael DO Primary Care Provider Active Dr. Michelle Ball DO Attending Provider, Referring Prov ider Active Team Status: Active Member Role Status Dates No Primary Care Physician Family Provider Active Dr. Michelle Ball DO Primary Care Provider Active Team Status: Inactive Member Role Status Dates Dr. Michelle Ball DO Primary Care Provide r, Attending Provider, Referring Provider Active Team Status: Active Member Role Status Dates Dr. Michelle Ball DO Primary Care Provider Active Team Status: Inactive Member Role Status Dates Dr. Michelle Ball DO Primary Care Provider Active Start: October 04, 2024 End: October 04, 2024 Dr. Michelle Ball DO Attending Provider Active St art: October 04, 2024 End: October 04, 2024 Dr. Michelle Ball DO Referring Provider Active St art: October 04, 2024 End: October 04, 2024 Team Status: Inactive Member Role Status Dates Dr. Michelle Ball DO Primary Care Provider Active Start: October 08, 2024 End: October 08, 2024 Dr. Michelle Ball , Attending Provider Active St art: October 08, 2024 End: October 08, 2024 Dr. Michelle Ball , Referring Provider Active St art: October 08, 2024 End: October 08, 2024 FOR RECORDS PERTAINING TO PATIENTS WHO ARE OR HAVE BEEN ENROLLED IN A CHEMICAL DEPENDENCY/SUBSTANCEABUSE PROGRAM, SOME INFORMATION MAY BE OMITTED. This clinical summary was aggregated from multiple sources. Caution should be exercised in using it in the provision of clinical care. This summary normalizes information from multiple sources, and as a consequence, information in this document may materially change the coding, format and clinical context of patient data. In addition, data may be omitted in some cases. CLINICAL DECISIONS SHOULD BE BASED ON THE PRIMARY CLINICAL RECORDS. [facility] [employer] provides no warranty or guarantee of the accuracy or completeness of information in this document.
== END | disposition home or self-care (01) ==
LOC: LABSPEC 15:26
PROVIDERS: PCP Family Medicine; Referring Provider Family Medicine; Visit Provider Family Medicine
DX: R30.0 Dysuria (principal)
CPT/HCPCS: 87086; 87088

== ENCOUNTER → 2025-05-05 | Outpatient (CLI) | payer MEDICARE, SELFPAY | END | disposition home or self-care (01) | LOC: LABSPEC 12:34 | PROVIDERS: PCP Family Medicine; Referring Provider Family Medicine; Visit Provider Family Medicine | DX: R30.0 Dysuria (principal) | CPT/HCPCS: 87077; 87086; 87088; 87186 ==